=== PATIENT | female | born 1955 | race Caucasian/White ===

== ENCOUNTER 2018-12-05 06:16 | Observation (INO) | payer BC, SELFPAY ==
[2018-12-05] VITALS (14 sets, daily range): BP systolic 120–159; BP diastolic 65–102; PULSE 57–80; RESP 14–20; TEMP 36.6–36.8; O2SAT 96–100; BMI 28.1; BMI 27.1; BMI 27.2
--- NOTE | 2018-12-05 06:30 | RAD_ITS ---
HISTORY: chest pain EXAM:XR Chest 1 View COMPARISON: 12/08/2013 FINDINGS: EKG leads in place. No significant change. Normal heart size. No vascular congestion, pleural effusion, or acute pulmonary infiltration. No pneumothorax. The bony thorax appears intact. RAD/Chest 1 View (Portable) IMPRESSION: No acute cardiopulmonary disease. No significant interval change. at 0740 Reported and signed by: Oneal Sharma MD Electronically Signed: Oneal Sharma, at 7:38 EDT Tel , Service support ,
--- NOTE | 2018-12-05 06:30 | EKG12_ITS ---
Test Reason : CP Blood Pressure : / mmHG Vent. Rate : 074 BPM Atrial Rate : 074 BPM P-R Int : 182 ms QRS Dur : 084 ms QT Int : 402 ms P-R-T Axes : 036 000 014 degrees QTc Int : 446 ms Normal sinus rhythm Nonspecific ST and T wave abnormality Abnormal ECG Confirmed by FARZANEH MCKINNON, GILLIAN ([id number]), restaurant expeditor KATHY GUADARRAMA ([id number]) on 12/08/2018 11:13:26 AM Referred By: BB Confirmed By:GILLIAN MOY MD
[2018-12-05] MEDS: Aspirin 81 MG TAB.CHEW 162 MG PO (06:36)
--- NOTE | 2018-12-05 06:37 | ED.DCSUM_ITS ---
History of Present Illness Chief Complaint: Chest Pain Informant: Patient, Family Onset: Hours - 1 Context: Sudden Onset - while lying in bed, shortly after waking up this AM Timing: Continuous Quality: heaviness, somewhat sharp Location: left chest, radiating down LUE w/ numbness Current Severity: Mild Maximum Severity: Severe Worsened by: nothing in particular. nonpleuritic. Relieved by: gradually after taking a baby aspirin. Associated Symptoms: sob, anxious (after onset), nauseated. Narrative: Patient states yesterday she felt malaised and nauseated off and on without any chest discomfort or dyspnea. This morning she woke up with the symptoms in her left chest, going down her left upper extremity with numbness there, the discomfort has gradually improved and is still present but very mild now. She has never had this before. She took a baby aspirin, although she does not take those daily, prior to arrival. Remote history of a DVT provoked by a foot fracture, she had an anticoagulant for about 6 months until resolution, she feels none of those symptoms now, is no longer on anticoagulation, and never had a pulmonary embolus. No recent travel, immobilization, hospitalization, or surgery. - Past Medical History (1) Anxiety Status: Chronic (2) Diabetes mellitus Status: Chronic (3) Esophageal reflux Status: Chronic (4) Hyperlipidemia Status: Chronic (5) Hypertension Status: Chronic (6) DVT, lower extremity Status: Resolved Past Medical History - Allergies and Home Meds Allergies/Adverse Reactions: Allergies codeine Allergy (Verified 04/24/16 11:52) Unknown venlafaxine HCl [From Effexor] Allergy (Verified 04/24/16 11:52) Chest tightness Primary Care Physician: Aracely Barahona MD [Primary Care Provider] - Surgical History: surgery Lives: Spouse/ Significant Other Smoking Status: Never smoker Drugs: None - Family History Paternal Family History: Reports: Heart Disease - [place] at age 49 Review of Systems General: Reports: Malaise. Denies: Chills, Fever, Sweats Eyes: Denies: Visual changes - bilaterally, Diplopia ENT: Denies: Rhinorrhea, Sore throat Cardiovascular: Reports: Chest pain. Denies: Palpitations Respiratory: Reports: Dyspnea. Denies: Cough Gastrointestinal: Reports: Nausea. Denies: Abdominal pain, Vomiting, Diarrhea, Melena, Hematochezia Genitourinary: Denies: Dysuria, Hematuria, Frequency Musculoskeletal: Denies: Back pain, Extremity Pain Skin: Denies: Rash, Wounds Neurological: Denies: Headache, Weakness, Numbness Psych: Reports: Anxiety. Denies: Suicidal thoughts Physical Exam Vital Signs/Narrative: Vital Signs Temp Pulse Resp BP Pulse Ox 12/05/18 06:32 71 16 147/81 H 98 12/05/18 06:16 97.9 F 80 20 H 159/102 H 100 Inital Vital Signs reviewed: Yes General: Well nourished, Well developed, No Acute Distress Head: Normocephalic, Atraumatic Eyes: Perrl, EOMI ENT: Moist mucous membranes, No rhinorrhea Neck: Supple, Nontender, No JVD Cardiovascular: Regular rate, Regular rhythm, No murmurs Respiratory: No distress, CTA bilaterally, Chest nontender Abdomen: Soft, Nontender, Nondistended, Normal bowel sounds Back: Nontender, Normal Inspection Extremities: Nontender, No edema, - - equal bilat 2+/4 radial pulses. Negative for: Calf Tenderness Skin: Normal color, No rash, No Trauma Neurological: Alert, Oriented x3, Cranial nerves II-XII grossly intact, Normal Strength, Normal Sensation Psychological: - - tearful/anxious Diagnostic/Tx/Re-eval Chest X-Ray - ED: 1 View, Read by ED Physician, No Acute Disease, Chronic Changes Laboratory Tests 12/05/18 12/05/18 12/05/18 Range/Units 06:20 06:20 06:20 WBC 9.6 (4.4-11.0) K/mm3 RBC 3.69 L (4.2-5.4) M/mm3 Hgb 11.5 L (12.0-15.0) g/dl Hct 34.5 L (37-47) % MCV 93.5 (81-99) fL MCH 31.2 (27.0-32.0) pg MCHC 33.3 (32-36) g/gl RDW 13.4 (11.6-14.6) % RDW Differential 46.2 H (35.1-43.9) fl Plt Count 249 (150-450) K/mm3 MPV 10.2 (6.2-12.0) fl Immature Gran % (Auto) 0.200 (0.0-0.9) % Neut % (Auto) 61.0 (47-70) % Lymph % (Auto) 27.5 (19-41) % [place] % (Auto) 9.4 (0-10) % Eos % (Auto) 1.6 (0-5) % Baso % (Auto) 0.3 (0-1) % Absolute Neuts (auto) 5.9 (2.0-7.7) X10^3/uL Absolute Lymphs (auto) 2.63 (0.83-4.51) X10^3/ul Total Counted Not Reportable APTT 27.7 (24.1-36.2) Seconds Sodium 141 (136-145) mmol/L Potassium 3.4 L (3.5-5.1) mmol/L Chloride 104 (98-107) mmol/L Carbon Dioxide 25.0 (21.0-32.0) mmol/L Anion Gap 12 (5-15) BUN 24 H (7-18) mg/dL Creatinine 1.06 H (0.55-1.02) mg/dL Estim Creat Clear Calc 60.27 ml/min Est GFR (MDRD) Af Amer 68 (>60) mL/min Est GFR (MDRD) Non-Af 56 L (>60) mL/min BUN/Creatinine Ratio 22.6 H (10-20) RATIO Glucose 183 H (74-106) mg/dL Calcium 8.6 (8.5-10.1) mg/dL Troponin I < 0.015 (<0.045) ng/mL - Rhythm Strip Rhythm Strip: Sinus Rhythm Rate: 80 Ectopy: None - EKG Initial EKG Interpretation: Sinus Rhythm, No Acute Injury Pattern, Non-Specific ST Changes - ant-sept. no ST depression/elevation. normal axis. Prior: Unchanged - Medical Decision Making KAMILLA risk score: 1 HEART score: 6 Pain and numbness are improved after 3 nitroglycerin, she has barely any discomfort right now. Nitroglycerin paste placed on her chest. She has significant risk, and her symptoms are concerning. Plan is for hospital admission for further treatment and risk stratification. ED Disposition - Plan for ED Patient: Disposition: Acute Care Hospital [facility] Diagnosis: Chest pain Referrals: Aracely Barahona MD [Primary Care Provider] -
[2018-12-05 06:45] LABS: Absolute Lymphocyte Count 2.63 X10^3/ul (0.83-4.51); Absolute Neutrophil Count 5.9 X10^3/uL (2.0-7.7); Basophil# 0.03 X10^3/uL; Basophil% 0.3 % (0-1); Eosinophil# 0.15 X10^3/uL; Eosinophils% 1.6 % (0-5); Hematocrit 34.5 % (37-47); Hemoglobin 11.5 g/dl (12.0-15.0); Lymphocyte # 2.63 X10^3/ul (4.0); Lymphocyte % 27.5 % (19-41); Mean Corp Hgb Conc 33.3 g/gl (32-36); Mean Corpuscular Hgb 31.2 pg (27.0-32.0); Mean Corpuscular Volume 93.5 fL (81-99); Mean Platelet Vol. 10.2 fl (6.2-12.0); Monocyte% 9.4 % (0-10); Neutrophil # 5.85 X10^3/uL (2.7-7.7); Platelet Count 249 K/mm3 (150-450); RBC Distribution Width CV 13.4 % (11.6-14.6); RBC Distribution Width SD 46.2 fl (35.1-43.9); Red Blood Count 3.69 M/mm3 (4.2-5.4); White Blood Count 9.6 K/mm3 (4.4-11.0)
[2018-12-05 06:47] LABS: POSITIVE COUNT NO; POSITIVE DIFFERENTIAL NO; POSITIVE MORPHOLOGY NO; Partial Thromboplast Time 27.7 Seconds (24.1-36.2)
[2018-12-05 06:58] LABS: Anion Gap 12 (5-15); BUN 24 mg/dL (7-18); BUN/Creat Ratio 22.6 RATIO (10-20); Calcium,Total 8.6 mg/dL (8.5-10.1); Chloride 104 mmol/L (98-107); Creatinine, Serum 1.06 mg/dL (0.55-1.02); EST Glomerular Filtration Rate 56 mL/min (>60); Est Glom Filt Rate - Afr Amer 68 mL/min (>60); Estimated Creatinine Clearance 60.27 ml/min; Glucose 183 mg/dL (74-106); Potassium 3.4 mmol/L (3.5-5.1); Sodium Level 141 mmol/L (136-145)
--- NOTE | 2018-12-05 07:24 | HP.PCM_ITS ---
Problem List (1) Chest pain Status: Acute Qualifiers: Chest pain type: unspecified Qualified Code(s): R07.9 - Chest pain, unspecified (2) Hypertension Status: Chronic Qualifiers: Hypertension type: essential hypertension Qualified Code(s): I10 - Essential (primary) hypertension (3) Hyperlipidemia Status: Chronic Qualifiers: Hyperlipidemia type: pure hypercholesterolemia Qualified Code(s): E78.00 - Pure hypercholesterolemia, unspecified; E78.0 - Pure hypercholesterolemia (4) Diabetes mellitus Status: Chronic Qualifiers: Diabetes mellitus type: type 2 Diabetes mellitus intermediate project manager insulin use: without intermediate project manager use Diabetes mellitus complication status: with unspecified complications Qualified Code(s): E11.8 - Type 2 diabetes mellitus with unspecified complications History of Present Illness Date of Admission: 12/05/18 Chief Complaint: Chest pain The patient is a 63 year old F with past medical history of hypertension, hyperlipidemia, type II DM, depression who comes in with complaints of chest pain that started on the morning of admission. Patient denies having unusual stress in her life. 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 She woke up in the morning with a left-sided dull chest pain that radiated on her arms asso ciated with numbness and some lightheadedness. This persisted for more than 15 minutes and she decided to come to the emergency department. In the ED, her vitals were 97.9F, heart rate was 80, blood pressure 159/102, respiratory rate was 20, she was saturating 100% on room air. Admitting blood work showed WBC count of 9.6, hemoglobin 11.5, platelet count 249, sodium 141, potassium 3.4, chloride 104, bicarbonate 25, BUN 24, creatinine 1.06, troponin was less than 0.015. EKG shows normal sinus rhythm, no acute ST-T changes. Past Medical History Past Medical History (Chronic Problems): Chronic Problems Esophageal reflux (Chronic) Anxiety (Chronic) Hypertension (Chronic) Hyperlipidemia (Chronic) Diabetes mellitus (Chronic) Allergies codeine Allergy (Verified 04/24/16 11:52) Unknown venlafaxine HCl [From Effexor] Allergy (Verified 04/24/16 11:52) Chest tightness Home Medications: Ambulatory Orders Medication Instructions Recorded Atenolol [Tenormin (beta elly)] 12.5 mg PO DAILY 09/22/13 Escitalopram Oxalate [Lexapro] 20 mg PO DAILY 09/22/13 Hydrocodone Bitart/Apap 5-325 1 tablet PO BID 09/22/13 [[place] 5/325] Lisinopril [Zestril] 10 mg PO BID 09/22/13 Metformin HCl [Glucophage] 500 mg PO BIDCM 09/22/13 Simvastatin [Zocor] 20 mg PO QHS 09/22/13 Triamterene 37.5MG/Hctz 25MG 1 tablet PO DAILY 09/22/13 [Maxzide 37.5 mg-25 mg Tablet] Zolpidem Tartrate [Ambien] 10 mg PO QHS PRN PRN 09/22/13 Colesevelam Hydrochloride [Welchol] 625 mg PO DAILY 12/05/18 Sitagliptin Phosphate [Januvia] 50 mg PO DAILY 12/05/18 Surgical History: - - foot surgery Psychiatric History: Anxiety, Depression [employer]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 Lives: Spouse/ Significant Other Smoking Status: Never smoker Tobacco Use: Non-smoker Alcohol: None Drugs: None - *Family History Paternal History Items: Heart Disease - [place] at age 49 Maternal History Items: Heart Disease, Hypertension Sibling History Items: Heart Disease Review of Systems Constitutional: Denies: Anorexia, Chills, Fever, Malaise, Weakness, Weight Change Eyes: Denies: Blurred vision, Cataracts, Conjunctivae Inflammation, Pain, Redness, Vision Change HEENT: Denies: Difficulty Hearing, Difficulty Swallowing, Head Aches, Sinus Congestion, Sinus Drainage, Sore Throat Cardiovascular: Reports: Chest Pain, Light Headedness. Denies: Claudication, Chest Pressure, Orthopnea, Palpitations, Paroxysmal Noc. Dyspnea Respiratory: Denies: Cough, Shortness of Breath, Shortness of breath at rest, Shortness of breath upon exertion, Sputum production, Wheezing Gastrointestinal: Denies: Abdominal Pain, Hematemesis, Hematochezia, Nausea, Vomiting Genitourinary: Denies: Dysuria, Frequency Musculoskeletal: Denies: Joint Pain, Joint stiffness, Joint swelling, Joint Tenderness Skin: Denies: Rash, Wounds Neurological: Denies: Numbness, Tingling, Focal weakness Psychiatric: Denies: Anxiety, Depression, Homicidal Ideations, Suicidal Ideations Hematologic/ Lymphatic: Denies: Easy Bruising, Easy Bleeding VTE Information - Inpt Only VTE Present on Admission: No VTE Pharm Prophylaxis ordered?: Yes - Physical Exam General: Alert, Oriented x3, Cooperative, No apparent distress HEENT: Atraumatic, PERRLA, EOMI, Normocephalic Oral: Moist Mucosa Neck: Supple Lungs: Clear to auscultation, Normal air movement Cardiovascular: Regular rate, Regular Rhythm, Normal S1, Normal S2, No murmurs Abdomen: Bowel Sounds Present, Soft, Non Tender, Non-Distended, No Hepato- splenomegaly Extremities: No edema Skin: No rashes, No breakdown Musculoskeletal: No Tenderness to Palpation of Joints or Extremities Lymphatic: No Cervical, Supraclavicular, or Inguinal Adenopathy Neurological: Cranial nerves II-XII grossly intact, Neuro grossly intact Psych/Mental Status: Normal Affect, Appropriate Vital Signs Temp Pulse Resp BP Pulse Ox 97.9 F 76 16 120/76 98 12/05/18 06:16 12/05/18 06:47 12/05/18 06:32 12/05/18 06:47 12/05/18 06:32 Oxygen Delivery Method Room Air Weight: 89 kg Body Mass Index (BMI) 28.1 Laboratory Tests Past 24 Hrs 12/05/18 12/05/18 12/05/18 06:20 06:20 06:20 WBC 9.6 RBC 3.69 L Hgb 11.5 L Hct 34.5 L MCV 93.5 MCH 31.2 MCHC 33.3 RDW 13.4 RDW Differential 46.2 H Plt Count 249 MPV 10.2 Immature Gran % (Auto) 0.200 Neut % (Auto) 61.0 Lymph % (Auto) 27.5 [place] % (Auto) 9.4 Eos % (Auto) 1.6 Baso % (Auto) 0.3 Absolute Neuts (auto) 5.9 Absolute Lymphs (auto) 2.63 Total Counted Not Reportable APTT 27.7 Sodium 141 Potassium 3.4 L Chloride 104 Carbon Dioxide 25.0 Anion Gap 12 BUN 24 H Creatinine 1.06 H Estim Creat Clear Calc 60.27 Est GFR (MDRD) Af Amer 68 Est GFR (MDRD) Non-Af 56 L BUN/Creatinine Ratio 22.6 H Glucose 183 H Calcium 8.6 Troponin I < 0.015 Assessment/Plan All Active Problems DVT, lower extremity (Resolved) Chest pain (Acute) 63 year old F with past medical history of hypertension, hyperlipidemia, type II DM, depression who comes in with complaints of chest pain that started on the morning of admission. 1. Chest pain, atypical, in a patient with risk factors for cardiovascular event of hypertension, hyperlipidemia, type II DM, strong positive family history Plan: Admit to PCU, cycle cardiac enzymes, stress ECHO, aspirin 81 mg po daily 2. Hypertension, slightly uncontrolled, will continue home meds and continue to monitor. 3. Hyperlipidemia, on statin 4. Type 2 DM, on metformin, will withhold metformin, will put on accucheks with ISS 5. DVt PPx- Lovenox SC Code Visit Inpatient E&M: [id number] Init Hosp L3
--- NOTE | 2018-12-05 08:02 | EKG12_ITS ---
Test Reason : CP ADMISSION Blood Pressure : / mmHG Vent. Rate : 057 BPM Atrial Rate : 057 BPM P-R Int : 182 ms QRS Dur : 086 ms QT Int : 426 ms P-R-T Axes : 036 000 022 degrees QTc Int : 414 ms Sinus bradycardia Low voltage QRS Borderline ECG When compared with ECG of 08-DEC-2013 10:07, No significant change was found Confirmed by FARZANEH MCKINNON, GILLIAN ([id number]), manuscript editor KATHY GUADARRAMA ([id number]) on 12/09/2018 8:13:23 AM Referred By: SARITHA Confirmed By:GILLIAN MOY MD
--- NOTE | 2018-12-05 10:35 | PCM.CONS.C ---
Reason for Consult Date of Consultation: 12/05/18 History of Present Illness: The patient is a 63 year old F with no previous cardiac history but a strong family history of coronary artery disease who woke up this morning feeling nauseated and had some chest discomfort described as a heaviness as well as radiation to her left side of her chest. She says that she has been feeling tired over the last few weeks. She has not had any palpitations no paroxysmal nocturnal dyspnea no pedal edema she presented to the hospital she was evaluated her initial EKG was unremarkable and initial troponins were normal. He was scheduled to undergo a stress test but her next enzymes were noted to be abnormal and it was felt that with her symptoms we should defer that. [] Past Medical History Allergies/Adverse Reactions: Allergies codeine Allergy (Verified 04/24/16 11:52) Unknown venlafaxine HCl [From Effexor] Allergy (Verified 04/24/16 11:52) Chest tightness Home Medications: Ambulatory Orders Medication Instructions Recorded Atenolol [Tenormin] 12.5 mg PO DAILY 09/22/13 Escitalopram Oxalate [Lexapro] 20 mg PO DAILY 09/22/13 Hydrocodone Bitart/Apap 5-325 1 tablet PO BID 09/22/13 [[place] 5MG-325MG] Lisinopril [Zestril] 10 mg PO BID 09/22/13 Metformin HCl [Glucophage] 500 mg PO BIDCM 09/22/13 Simvastatin [Zocor] 20 mg PO QHS 09/22/13 Triamterene 37.5MG/Hctz 25MG 1 tablet PO DAILY 09/22/13 [Maxzide 37.5 mg-25 mg Tablet] Zolpidem Tartrate [Ambien] 10 mg PO QHS PRN PRN 09/22/13 Colesevelam Hydrochloride [Welchol] 625 mg PO DAILY 12/05/18 Sitagliptin Phosphate [Januvia] 50 mg PO DAILY 12/05/18 Past Medical History (Chronic Problems): Chronic Problems Esophageal reflux (Chronic) Anxiety (Chronic) Hypertension (Chronic) Hyperlipidemia (Chronic) Diabetes mellitus (Chronic) Surgical History: surgery - *Family History Paternal History Items: Heart Disease - [place] at age 49 Lives: Spouse/ Significant Other Smoking Status: Never smoker Alcohol: None Drugs: None Review of Systems - Review of Systems General: Denies: Fever, Night Sweats, Fatigue HEENT: Denies: Vision Change Cardiovascular: Reports: Chest Discomfort, Chest Discomfort at Rest. Denies: Shortness of Breath, Orthopnea, PND, Peripheral Edema, Palpitations, Lightheadedness, Dizziness, Near Syncope, Syncope Respiratory: Denies: Cough, Sputum Production, Hemoptysis Gastrointestinal: Reports: Nausea. Denies: Hematemesis, Hematochezia, Melena Genitourinary: Denies: Dysuria, Hematuria Muscoloskeletal: Reports: Myalgias Skin: Denies: Rash Psychiatric: Reports: Anxiety Endocrine: Denies: Heat Intolerance Hematologic/ Lymphatic: Denies: Lymph Node Enlargement Subjectve: Pleasant lady in no apparent distress Objective: Vital Signs Temp Pulse Resp BP Pulse Ox 98.0 F 57 L 14 128/66 H 98 12/05/18 08:17 12/05/18 08:34 12/05/18 08:17 12/05/18 08:17 12/05/18 08:17 Oxygen Delivery Method Room Air Weight: 189 lb 9.561 oz Body Mass Index (BMI) 27.1 General: Awake, Alert, Oriented x 3 HEENT: PERRL, EOMI, Sclera Non Icteric Neck: Supple, Good ROM, No Lymph Node Enlargement Lungs: Clear to auscultation Cardiovascular: Regular Rhythm, Normal S1, Normal S2, No Murmurs, No Rubs, No Gallops Vascular: No Carotid Bruits, Normal Femoral Pulses, Normal Radial Pulses, Normal Dorsalis Pedal Pulse, Normal Posterior Tibial Pulses Abdomen: Bowel Sounds Present, Soft, Non Tender, No HSM, No Organomegaly Extremities: No Cyanosis, No Clubbing, No edema Musculoskeletal: No Erythema Skin: No Rashes Lymphatic: No Lymph Node Enlargement Neurological: No Focal Motor or Sensory Deficit Psych/Mental Status: Appropriate 12/05/18 06:20: WBC 9.6, RBC 3.69 L, Hgb 11.5 L, Hct 34.5 L, MCV 93.5, MCH 31.2, MCHC 33.3, RDW 13.4, RDW Differential 46.2 H, Plt Count 249, MPV 10.2, Immature Gran % (Auto) 0.200, Neut % (Auto) 61.0, Lymph % (Auto) 27.5, [place] % (Auto) 9.4, Eos % (Auto) 1.6, Baso % (Auto) 0.3, Absolute Neuts (auto) 5.9, Total Counted Not Reportable 12/05/18 06:20: APTT 27.7 12/05/18 06:20: Sodium 141, Potassium 3.4 L, Chloride 104, Carbon Dioxide 25.0, Anion Gap 12, BUN 24 H, Creatinine 1.06 H, Est GFR (MDRD) Af Amer 68, Est GFR (MDRD) Non-Af 56 L, BUN/Creatinine Ratio 22.6 H, Glucose 183 H, Calcium 8.6, Troponin I < 0.015 12/05/18 09:15: Troponin I 0.281 H Rhythm: EKG: ECHO: Stress Test: Cardiac Cath: PCI: CT Surgery: Holter monitor: EPS: PPM: CXR: Chest CT Scan: Assessment/Plan 1. Unstable angina Patient presents with chest discomfort and has abnormal cardiac enzymes. Her chest discomfort though atypical appears to be suggestive of unstable angina. My recommendations at this time would be as follows Loaded with ticagrelor aspirin Defer stress testing and proceed with a left heart catheterization. The risk benefits alternatives have been explained to the patient and her they understand and agreed to proceed. 2. Hypertension Controlled with current medical therapy 3. Risk factor modification Continue aggressive risk factor modification Addendum.: Cardiac catheterization today demonstrated minimal coronary artery disease and preserved ejection fraction. The patient will be discharged for outpatient follow-up. Thank you for allowing me to participate in the care of your patient. Please don't hesitate to call if any issues arise
--- NOTE | 2018-12-05 10:40 | CON.PCM_ITS ---
Reason for Consult Date of Consultation: 12/05/18 History of Present Illness: The patient is a 63 year old F with no previous cardiac history but a strong family history of coronary artery disease who woke up this morning feeling nauseated and had some chest discomfort described as a heaviness as well as radi ation to her left side of her chest. She says that she has been feeling tired over the last few weeks. She has not had any palpitations no paroxysmal nocturnal dyspnea no pedal edema she presented to the hospital she was evaluated her initial EKG was unremarkable and initial troponins were normal. He was scheduled to undergo a stress test but her next enzymes were noted to be abnormal and it was felt that with her symptoms we should defer that. [] Past Medical History Allergies/Adverse Reactions: Allergies codeine Allergy (Verified 04/24/16 11:52) Unknown venlafaxine HCl [From Effexor] Allergy (Verified 04/24/16 11:52) Chest tightness Home Medications: Ambulatory Orders Medication Instructions Recorded Atenolol [Tenormin] 12.5 mg PO DAILY 09/22/13 Escitalopram Oxalate [Lexapro] 20 mg PO DAILY 09/22/13 Hydrocodone Bitart/Apap 5-325 1 tablet PO BID 09/22/13 [[place] 5MG-325MG] Lisinopril [Zestril] 10 mg PO BID 09/22/13 Metformin HCl [Glucophage] 500 mg PO BIDCM 09/22/13 Simvastatin [Zocor] 20 mg PO QHS 09/22/13 Triamterene 37.5MG/Hctz 25MG 1 tablet PO DAILY 09/22/13 [Maxzide 37.5 mg-25 mg Tablet] Zolpidem Tartrate [Ambien] 10 mg PO QHS PRN PRN 09/22/13 Colesevelam Hydrochloride [Welchol] 625 mg PO DAILY 12/05/18 Sitagliptin Phosphate [Januvia] 50 mg PO DAILY 12/05/18 Past Medical History (Chronic Problems): Chronic Problems Esophageal reflux (Chronic) Anxiety (Chronic) Hypertension (Chronic) Hyperlipidemia (Chronic) Diabetes mellitus (Chronic) Surgical History: surgery - *Family History Paternal History Items: Heart Disease - MD at age 49 Lives: Spouse/ Significant Other Smoking Status: Never smoker Alcohol: None Drugs: None Review of Systems - Review of Systems General: Denies: Fever, Night Sweats, Fatigue HEENT: Denies: Vision Change Cardiovascular: Reports: Chest Discomfort, Chest Discomfort at Rest. Denies: Shortness of Breath, Orthopnea, PND, Peripheral Edema, Palpitations, Lightheadedness, Dizziness, Near Syncope, Syncope Respiratory: Denies: Cough, Sputum Production, Hemoptysis Gastrointestinal: Reports: Nausea. Denies: Hematemesis, Hematochezia, Melena Genitourinary: Denies: Dysuria, Hematuria Muscoloskeletal: Reports: Myalgias Skin: Denies: Rash Psychiatric: Reports: Anxiety Endocrine: Denies: Heat Intolerance Hematologic/ Lymphatic: Denies: Lymph Node Enlargement Subjectve: Pleasant lady in no apparent distress Objective: Vital Signs Temp Pulse Resp BP Pulse Ox 98.0 F 57 L 14 128/66 H 98 12/05/18 08:17 12/05/18 08:34 12/05/18 08:17 12/05/18 08:17 12/05/18 08:17 Oxygen Delivery Method Room Air Weight: 189 lb 9.561 oz Body Mass Index (BMI) 27.1 General: Awake, Alert, Oriented x 3 HEENT: PERRL, EOMI, Sclera Non Icteric Neck: Supple, Good ROM, No Lymph Node Enlargement Lungs: Clear to auscultation Cardiovascular: Regular Rhythm, Normal S1, Normal S2, No Murmurs, No Rubs, No Gallops Vascular: No Carotid Bruits, Normal Femoral Pulses, Normal Radial Pulses, Normal Dorsalis Pedal Pulse, Normal Posterior Tibial Pulses Abdomen: Bowel Sounds Present, Soft, Non Tender, No HSM, No Organomegaly Extremities: No Cyanosis, No Clubbing, No edema Musculoskeletal: No Erythema Skin: No Rashes Lymphatic: No Lymph Node Enlargement Neurological: No Focal Motor or Sensory Deficit Psych/Mental Status: Appropriate 12/05/18 06:20: WBC 9.6, RBC 3.69 L, Hgb 11.5 L, Hct 34.5 L, MCV 93.5, MCH 31.2, MCHC 33.3, RDW 13.4, RDW Differential 46.2 H, Plt Count 249, MPV 10.2, Immature Gran % (Auto) 0.200, Neut % (Auto) 61.0, Lymph % (Auto) 27.5, [place] % (Auto) 9.4, Eos % (Auto) 1.6, Baso % (Auto) 0.3, Absolute Neuts (auto) 5.9, Total Counted Not Reportable 12/05/18 06:20: APTT 27.7 12/05/18 06:20: Sodium 141, Potassium 3.4 L, Chloride 104, Carbon Dioxide 25.0, Anion Gap 12, BUN 24 H, Creatinine 1.06 H, Est GFR (MDRD) Af Amer 68, Est GFR (MDRD) Non-Af 56 L, BUN/Creatinine Ratio 22.6 H, Glucose 183 H, Calcium 8.6, Troponin I < 0.015 12/05/18 09:15: Troponin I 0.281 H Rhythm: EKG: ECHO: Stress Test: Cardiac Cath: PCI: CT Surgery: Holter monitor: EPS: PPM: CXR: Chest CT Scan: Assessment/Plan 1. Unstable angina * Patient presents with chest discomfort and has abnormal cardiac enzymes. Her chest discomfort though atypical appears to be suggestive of unstable angina. My recommendations at this time would be as follows * Loaded with ticagrelor * aspirin * Defer stress testing and proceed with a left heart catheterization. The risk benefits alternatives have been explained to the patient and her they understand and agreed to proceed. * 2. Hypertension * Controlled with current medical therapy * 3. Risk factor modification * Continue aggressive risk factor modification * * * Addendum.: Cardiac catheterization today demonstrated minimal coronary artery disease and preserved ejection fraction. The patient will be discharged for outpatient follow-up. * Thank you for allowing me to participate in the care of your patient. Please don't hesitate to call if any issues arise
--- NOTE | 2018-12-05 10:42 | CASEMGMT ---
According to [facility] website, the following are in-network tertiary facilities: [facility], [facility], [facility], [facility], [facility], [facility], [facility], [facility], and . Maranda DENTON CM
--- NOTE | 2018-12-05 10:47 | NURSING ---
report called to Siddhartha DENTON
[2018-12-05] MEDS: Triamterene 37.5MG/Hctz 25MG Capsule 1 CAP PO (12:30)
[2018-12-05] MEDS: Lisinopril 20 MG Tablet PO (12:30)
[2018-12-05] MEDS: Atenolol 25 MG Tablet 12.5 MG PO (12:30)
[2018-12-05] MEDS: Escitalopram Oxalate 20 MG Tablet PO (12:30)
[2018-12-05 12:35] LABS: Bedside Glucose 120 mg/dL (70-110)
--- NOTE | 2018-12-05 12:57 | DCINST_ITS ---
- Discharge Diagnoses Current Active Problems: Current Active and Chronic Problems Chest pain (Acute) Reason(s) for Visit for Discharge Instructions: Chest pain You will use the following diet at home:: Calorie/Carbohydrate Controlled (specify 1200, 1400, etc), Cardiac Your food should be the consistency of: Regular Your liquids should be the consistency of: Regular/Thin Discharge Activity: Return to Normal Activity Additional Instructions: Continue on all your medications. Follow-up with your primary care doctor within 1-2 weeks. Resume metformin on 12/07/18. Continue to remain active Allergies/Adverse Reactions: Allergies codeine Allergy (Verified 04/24/16 11:52) Unknown venlafaxine HCl [From Effexor] Allergy (Verified 04/24/16 11:52) Chest tightness Medications to take at Discharge Atenolol [Tenormin (beta elly)] 12.5 mg PO DAILY 09/22/13 Escitalopram Oxalate [Lexapro] 20 mg PO DAILY 09/22/13 Hydrocodone Bitart/Apap 5-325 [[place] 5/325] 1 tablet PO BID 09/22/13 Lisinopril [Zestril] 10 mg PO BID 09/22/13 Metformin HCl [Glucophage] 500 mg PO BIDCM 09/22/13 Simvastatin [Zocor] 20 mg PO QHS 09/22/13 Triamterene 37.5MG/Hctz 25MG [Maxzide 37.5 mg-25 mg Tablet] 1 tablet PO DAILY 09/22/13 Zolpidem Tartrate [Ambien] 10 mg PO QHS PRN PRN 09/22/13 Colesevelam Hydrochloride [Welchol] 625 mg PO DAILY 12/05/18 Sitagliptin Phosphate [Januvia] 50 mg PO DAILY 12/05/18 Primary Care Physician: Aracely Barahona MD [Primary Care Provider] - Please follow up with your Primary Care Physician in: within 1-2 weeks Test Results: Test results from this visit will be discussed in further detail at your follow- up appointment, if applicable. Proposed Discharge Date: 12/05/18
--- NOTE | 2018-12-05 12:57 | PCM.DC.SUM ---
Discharge Date and Diagnosis Date of Admission: 01/18/11 Date of Discharge: 12/05/18 - Primary Discharge Diagnosis Active and Suspected Problems Chest pain (Acute) - Secondary Discharge Diagnosis Chronic Problems Esophageal reflux (Chronic) Anxiety (Chronic) Hypertension (Chronic) Hyperlipidemia (Chronic) Diabetes mellitus (Chronic) Hospital Course and Treatment Imaging Results: 12/05/18 06:30 Chest 1 View (Portable) [RAD] Stat Clinical Impression(s) from Imaging Studies Chest X-Ray 12/05/18 06:30 IMPRESSION: No acute cardiopulmonary disease. No significant interval change. at 0740 Reported and signed by: Oneal Sharma MD Electronically Signed: Oneal Sharma, at 7:38 EDT Tel , Service support , Cardiology Operations: None Procedures: Cardiac catheterization, Stress test Summary of Care Provided: The patient is a 63 year old F with past medical history of hypertension, hyperlipidemia, type II DM, with a strong family history of cardiovascular events who was admitted with an episode of chest pain concerning for possible angina. Patient admits EKG was unremarkable, troponins initially was negative, and elevated to 0.281. Patient was seen by cardiology. She underwent cardiac cath that was essentially normal. Patient was discharged home to follow-up with her primary care doctor. Subjective: See H & P Objective: See H & P - Physical Exam Vital Signs Temp Pulse Resp BP Pulse Ox 98.0 F 62 16 131/71 H 96 12/05/18 08:17 12/05/18 12:30 12/05/18 12:30 12/05/18 12:30 12/05/18 12:30 Oxygen Delivery Method Room Air Weight: 86 kg Body Mass Index (BMI) 27.1 Intake and Output for Last 24 Hours 12/03/18 12/04/18 12/05/18 23:59 23:59 23:59 Intake Total 340 / 340 Balance 340 / 340 Laboratory Tests Past 24 Hrs 12/05/18 12/05/18 12/05/18 06:20 06:20 06:20 WBC 9.6 RBC 3.69 L Hgb 11.5 L Hct 34.5 L MCV 93.5 MCH 31.2 MCHC 33.3 RDW 13.4 RDW Differential 46.2 H Plt Count 249 MPV 10.2 Immature Gran % (Auto) 0.200 Neut % (Auto) 61.0 Lymph % (Auto) 27.5 [place] % (Auto) 9.4 Eos % (Auto) 1.6 Baso % (Auto) 0.3 Absolute Neuts (auto) 5.9 Absolute Lymphs (auto) 2.63 Total Counted Not Reportable APTT 27.7 Sodium 141 Potassium 3.4 L Chloride 104 Carbon Dioxide 25.0 Anion Gap 12 BUN 24 H Creatinine 1.06 H Estim Creat Clear Calc 60.27 Est GFR (MDRD) Af Amer 68 Est GFR (MDRD) Non-Af 56 L BUN/Creatinine Ratio 22.6 H Glucose 183 H Calcium 8.6 Troponin I < 0.015 12/05/18 09:15 WBC RBC Hgb Hct MCV MCH MCHC RDW RDW Differential Plt Count MPV Immature Gran % (Auto) Neut % (Auto) Lymph % (Auto) [place] % (Auto) Eos % (Auto) Baso % (Auto) Absolute Neuts (auto) Absolute Lymphs (auto) Total Counted APTT Sodium Potassium Chloride Carbon Dioxide Anion Gap BUN Creatinine Estim Creat Clear Calc Est GFR (MDRD) Af Amer Est GFR (MDRD) Non-Af BUN/Creatinine Ratio Glucose Calcium Troponin I 0.281 H POC Glucose 12/05/18 12:28 POC Glucose 120 H Discharge Diet: Soft diet, 2000 mg Sodium Diet, Carb Control Diet Discharge Activity: Return to Normal Activity Home Medications: Medications to take at Discharge Atenolol [Tenormin (beta elly)] 12.5 mg PO DAILY 09/22/13 Escitalopram Oxalate [Lexapro] 20 mg PO DAILY 09/22/13 Hydrocodone Bitart/Apap 5-325 [[place] 5/325] 1 tablet PO BID 09/22/13 Lisinopril [Zestril] 10 mg PO BID 09/22/13 Metformin HCl [Glucophage] 500 mg PO BIDCM 09/22/13 Simvastatin [Zocor] 20 mg PO QHS 09/22/13 Triamterene 37.5MG/Hctz 25MG [Maxzide 37.5 mg-25 mg Tablet] 1 tablet PO DAILY 09/22/13 Zolpidem Tartrate [Ambien] 10 mg PO QHS PRN PRN 09/22/13 Colesevelam Hydrochloride [Welchol] 625 mg PO DAILY 12/05/18 Sitagliptin Phosphate [Januvia] 50 mg PO DAILY 12/05/18 Primary Care Physician: Aracely Barahona MD [Primary Care Provider] - Please follow up with your Primary Care Physician in: within 1-2 weeks Disposition: Home Minutes spent on discharge:: 45 Patient Condition:: Stable Medical Necessity - Tobacco Use Smoking Status: Never smoker Tobacco Use: Non-smoker Meaningful Use Info Meaningful Use Diagnoses (Choose all that apply): None applicable Code Visit OBSV E&M: 40367 Observation care discharge
[2018-12-05] MEDS: HYDROcodone Bitartrate/Apap 5/325 Tablet PO (13:41)
--- NOTE | 2018-12-05 14:47 | CL.D_ITS ---
Patient Name: TY HOLLINGSWORTH Study Date: 12/05/2018 Performing: Demetrius Renee MD Ht: 70 inches 178 cm : 1955 Wt: 189.8 lbs 86 kg Age: 63 Gender: female BSA: 2.04 PROCEDURE(S) PERFORMED KC68-YMK/COR/LV CLINICAL PROFILE AND INDICATIONS Indications: Suspected CAD Heart Failure: None Stress/Imaging Stress/Image Study Performed: No CAD Presentations: Unstable angina. CONCLUSIONS Normal coronary arteries Normal LV size, wall motion,and systolic function RECOMMENDATIONS Medical therapy DESCRIPTION OF PROCEDURE The patient arrived to the procedure lab. The risks and benefits of the procedure as well as a full d escription of our services here and current unavailability of surgical backup were fully explained to the patient and/or their significant other prior to the catheterization. The Timeout was completed, verifying the correct patient and procedure. The patient's procedural site was prepped and draped in the usual fashion. Local anesthetic was given subcutaneously to right radial region with Lidocaine 2% . Using a modified Seldinger technique, arterial access was obtained via the right radial artery, a 5 Fr sheath was inserted. Left Coronary Artery selective angiography was performed in multiple views u sing a 5 Fr. 4.0 [place] catheter. Right Coronary Artery selective angiography was then performed in mu ltiple views using a 5 Fr. 4.0 [place] catheter. Left Ventriculography was performed in FIERRO projection using a 5 Fr. Pigtail catheter. LV to AO pullback pressures were then recorded.The arterial sheath was pulled and a TR Band was applied for hemostasis-14 cc air CORONARY ANGIOGRAPHY DOMINANCE: Right Dominant LEFT HEART ASSESSMENT Left Ventricular Ejection Fraction: by LV Gram 55 % Normal LV wall motion Normal Left Ventricular systolic function Normal Left Ventricular systolic function LEFT MAIN: Angiographically normal LEFT ANTERIOR DECENDING ARTERY: Angiographically normal CIRCUMFLEX ARTERY: Angiographically normal RIGHT CORONARY ARTERY: Angiographically normal COMPLICATIONS No Complications PROCEDURE MEDICATIONS Versed 1 mg IV Fentanyl 50 mcg IV Versed 1 mg IV Oxygen: 2 L/min via nasal cannula Brilinta 180 mg PO @ 12/05/2018 10:42:58 Heparin diluted in 23cc Heparinized saline. Patient given 10cc IA of this solution. 12/05/2018 11:28:3 8 Verapamil 2.5mg, Ntg 100mcgs, 2000 units of Heparin diluted in 23cc Heparinized saline. Patient give n 10cc IA of this solution. 12/05/2018 11:28:38 SUMMARY OF HEMODYNAMIC DATA Time AIR REST ECG 11:16:16 AO 133/68 (94) SA 11:40:50 LV 134/-1, 11 11:49:34 LV 121/-2, 5 11:49:41 LV 124/-1, 10 11:50:38 LVp 135/4, 14 11:50:47 AOp 145/68 (98) 11:50:52 Signed By Demetrius Renee MD On 12/05/2018 14:46:06 Demetrius Renee MD
== END 2018-12-05 12:45 | disposition home or self-care (01) ==
LOC: ED 07:01 → PCU 07:32
PROVIDERS: Admitting Provider Internal Medicine; Emergency Provider Emergency Medicine; Family Provider Internal Medicine; PCP Internal Medicine; Visit Provider Internal Medicine
DX: R07.89 Other chest pain (principal); R20.0 Anesthesia of skin; R11.0 Nausea; K21.9 Gastro-esophageal reflux disease without esophagitis; E78.5 Hyperlipidemia, unspecified; E11.9 Type 2 diabetes mellitus without complications; I10 Essential (primary) hypertension; F41.9 Anxiety disorder, unspecified; Z79.84 Long term (current) use of oral hypoglycemic drugs; Z79.899 Other long term (current) drug therapy; Z86.718 Personal history of other venous thrombosis and embolism; F32.9 Major depressive disorder, single episode, unspecified; R42 Dizziness and giddiness
CPT/HCPCS: 36415; 71045; 80048; 82962; 84484; 85025; 85730; 93005; 93458; 99152; 99153; 99218; 99285; J7040; A4216; C1769; C1894; G0378; Q9967

== ENCOUNTER 2019-10-14 17:13 | Emergency (ER) | payer BC, SELFPAY ==
[2018-12-05 08:06] VITALS: BMI 27.1
[2019-10-14 17:14] VITALS: RESP 16
[2019-10-14 17:15] VITALS: BP 140/84; PULSE 101; RESP 17; TEMP 37.4; O2SAT 97; BMI 25.2
--- NOTE | 2019-10-14 17:38 | EKG12_ITS ---
Test Reason : CP Blood Pressure : / mmHG Vent. Rate : 090 BPM Atrial Rate : 090 BPM P-R Int : 162 ms QRS Dur : 078 ms QT Int : 360 ms P-R-T Axes : 025 -02 010 degrees QTc Int : 440 ms Normal sinus rhythm Low voltage QRS Nonspecific ST and T wave abnormality Abnormal ECG Confirmed by COLIN MCKINNON, AMRIK ([id number]), index editor TRAM KRISHNAN ([id number]) on 10/16/2019 8:02:28 AM Referred By: JUAN MANUEL Confirmed By:NIKKI SHAW MD
[2019-10-14] MEDS: 0.9% Normal Saline 1,000 ML 1000 ML IV (17:49)
[2019-10-14] MEDS: Aspirin 81 MG TAB.CHEW 324 MG PO (17:50)
[2019-10-14] MEDS: Ondansetron 4 MG/2 ML Vial IV (17:50)
[2019-10-14] MEDS: Morphine 4 MG/ML Syringe IV (17:50)
[2019-10-14 17:52] LABS: Bacteria 0 SEEN /hpf (None Seen); Mucous, Urine 0 SEEN /hpf (<or=2+); Red Blood Cells-Urine 0 SEEN /hpf (0-5); Squamous Epithelial Cells - UA 0 SEEN /hpf (5-10); White Blood Cells 0 SEEN /hpf (0-5)
[2019-10-14 17:58] LABS: Absolute Lymphocyte Count 0.22 X10^3/uL (0.83-4.51); Absolute Neutrophil Count 10.2 X10^3/uL (2.0-7.7); Basophil# 0.01 X10^3/uL; Basophil% 0.1 % (0-1); Hematocrit 37.4 % (37-47); Hemoglobin 12.7 g/dL (12.0-15.0); Lymphocyte # 0.22 X10^3/ul (4.0); Mean Corpuscular Hgb 30.4 pg (27.0-32.0); Mean Corpuscular Volume 89.5 fL (81-99); Monocyte# 0.41 X10^3/uL; Monocyte% 3.8 % (0-10); NRBC Flagged by Analyzer 0 % (0-5); Neutrophil # 10.18 X10^3/uL (2.7-7.7); Neutrophil % 93.5 % (47-70); POSITIVE DIFFERENTIAL YES; Platelet Count 220 K/mm3 (150-450); RBC Distribution Width CV 12.8 % (11.6-14.6); RBC Distribution Width SD 41.3 fl (35.1-43.9); Red Blood Count 4.18 M/mm3 (4.2-5.4); White Blood Count 10.9 K/mm3 (4.4-11.0)
[2019-10-14 18:00] LABS: Differential Indicated SCAN CRITERIA MET
--- NOTE | 2019-10-14 18:00 | RAD_ITS ---
STUDY: X-RAY CHEST REASON FOR EXAM: Female, 64 years old. Pain TECHNIQUE: Frontal and lateral views of the chest COMPARISON: 12/05/2018 FINDINGS: The lungs are clear. There are no pleural effusions. There is no pneumothorax. The heart is normal in size. The visualized osseous structures are within normal limits. RAD/Chest PA and Lateral IMPRESSION: No acute thoracic pathology. Electronically Signed: Yifan Madera, at 18:29 EST Tel , Service support ,
[2019-10-14 18:03] LABS: Color, Urine Yellow (Yellow); Glucose, Dipstick Normal (Normal); Ketone-Dipstick 50 mg/dl (Negative); Leukocyte Esterase-Dipstick Negative /ul (Negative); Nitrite-Dipstick Negative (Negative); Occult Blood-Urine Negative /ul (Negative); Protein-Dipstick 15 mg/dl (Negative); Urine Bilirubin Dipstick Negative (Negative); Urine Clarity Sl. Cloudy (Clear); Urine Urobilinogen Normal (Normal)
[2019-10-14 18:15] LABS: ALB/GLOB Ratio 1.2 RATIO (0.9-2.4); AST(SGOT) 14 U/L (15-37); Alanine Aminotransfer ALT/SGPT 26 U/L (13-56); Alkaline Phosphatase 67 U/L (45-117); Anion Gap 10 (5-15); BUN 28 mg/dL (7-18); BUN/Creat Ratio 26.2 RATIO (10-20); Calcium,Total 9.1 mg/dL (8.5-10.1); Chloride 104 mmol/L (98-107); Creatinine, Serum 1.07 mg/dL (0.55-1.02); EST Glomerular Filtration Rate 55 mL/min (>60); Est Glom Filt Rate - Afr Amer 67 mL/min (>60); Estimated Creatinine Clearance 58.95 ml/min; Globulin 3.4 g/dL (2.2-4.2); Glucose 149 mg/dL (74-106); Lipase 86 U/L (73-393); Potassium 3.1 mmol/L (3.5-5.1); Protein, Total 7.4 g/dL (6.4-8.2); Sodium Level 138 mmol/L (136-145)
[2019-10-14 18:27] LABS: Differential Comment SCANNED
[2019-10-14 19:14] VITALS: BP 128/69; PULSE 88; RESP 20; O2SAT 94
--- NOTE | 2019-10-14 20:12 | ED.VISSUMM ---
- ER Visit Summary Date of Service: 10/14/19 Chief Complaint: Abdominal pain History of Present Illness: The patient is a 64 F who presents with abdominal pain that has been constant for the past week. Patient states her pain is over the epigastric area. Patient admits to some pain up into her chest. Patient describes her pain is sharp. Patient admits to some nausea and vomiting. Patient denies any hematemesis or coffee-ground emesis. Patient denies any diarrhea, melena, or hematochezia. Patient denies any dysuria or hematuria. Patient denies any shortness of breath. Patient admits to subjective chills but denies any fevers. Physical Examination: Vital signs are stable. Patient is afebrile. Patient is in no acute distress. Oral mucosa is pink and moist. Neck is supple. Trachea is midline. There is no JVD. Heart was regular rate and rhythm. Lungs are clear and equal bilaterally. Abdomen is soft. Bowel sounds are normal. There is some epigastric tenderness. There is no rebound or guarding noted. Cranial nerves II through XII are intact. There are no focal motor or sensory deficits noted. Test Results: EKG showed normal sinus rhythm with a rate of 90. There are nonspecific ST-T wave changes. These were unchanged compared to the previous EKG dated 12/05/2018. CBC and comprehensive metabolic profile were essentially within normal limits. Potassium was slightly low at 3.1. Urinalysis was normal. Troponin was normal. PA and lateral chest x-ray was obtained. There is no acute cardiopulmonary process. This was interpreted by the radiologist and myself. Emergency Department Course and Treatment: Patient was given aspirin. Patient was given morphine and Zofran. Patient was feeling better on reevaluation. Patient was hungry and requested something to drink. Patient was advised of her findings. Patient was instructed to follow-up with her primary care physician in 3 to 5 days. Patient understood and was agreeable with the plan. All questions were answered. Disposition: Discharge home Impression: Abdominal pain This note was generated with [employer] dictation software. It may contain incorrect words, spelling, and punctuation that were not noted in review of the chart prior to signing ED Disposition - Plan for ED Patient: Disposition: Home or Assisted Living Diagnosis: Abdominal pain, Chest pain Instructions: ABDOMINAL PAIN, Unknown Cause, (Female), CHEST PAIN, Uncertain Cause Prescriptions: Ondansetron [Zofran Odt] 4 mg PO Q8H PRN PRN #10 tab PRN Reason: Nausea Prescription Printed Referrals: Aracely Barahona MD [Primary Care Provider] - 5-7 Days
[2019-10-14 20:25] VITALS: BP 114/71; PULSE 93; RESP 18; O2SAT 95
== END 2019-10-14 20:28 | disposition home or self-care (01) ==
PROVIDERS: Emergency Provider Emergency Medicine; PCP Internal Medicine
DX: R10.13 Epigastric pain (principal); R07.9 Chest pain, unspecified; E11.9 Type 2 diabetes mellitus without complications; Z79.899 Other long term (current) drug therapy; M54.5 Low back pain; Z79.84 Long term (current) use of oral hypoglycemic drugs
CPT/HCPCS: 71046; 80053; 81001; 83690; 84484; 85025; 93005; 96361; 96374; 96375; 99285; J7030; A4216; J2405

== ENCOUNTER 2020-03-07 18:40 | Emergency (ER) | payer BC, SELFPAY ==
[2020-03-07 18:41] VITALS: BP 147/94; PULSE 68; RESP 15; TEMP 36.4; O2SAT 96; BMI 25.9
--- NOTE | 2020-03-07 19:01 | EKG12_ITS ---
Test Reason : CHEST PAIN Blood Pressure : / mmHG Vent. Rate : 069 BPM Atrial Rate : 069 BPM P-R Int : 176 ms QRS Dur : 086 ms QT Int : 388 ms P-R-T Axes : 024 002 030 degrees QTc Int : 415 ms Normal sinus rhythm Normal ECG Confirmed by DIAMOND MCKINNON, MILADY ([id number]), science editor TRAM KRISHNAN ([id number]) on 03/09/2020 10:15:16 AM Referred By: REGINE Confirmed By:MILADY FIELDS MD
--- NOTE | 2020-03-07 19:01 | RAD_ITS ---
STUDY: X-RAY CHEST REASON FOR EXAM: Female, 64 years old. Chest pain TECHNIQUE: Frontal view of the chest COMPARISON: 10/14/2019 FINDINGS: The lungs are clear. There are no pleural effusions. There is no pneumothorax. The heart is normal in size. The visualized osseous structures are within normal limits. RAD/Chest 1 View (Portable) IMPRESSION: No acute thoracic pathology. Electronically Signed: Yifan Madera, at 19:44 EDT Tel , Service support ,
[2020-03-07] MEDS: Aspirin 81 MG TAB.CHEW 324 MG PO (19:32)
--- NOTE | 2020-03-07 19:34 | ED.RN ---
pt requested to not take nitro at this time as she states my chest pain is getting better can we wait on the nitro. md made aware. will continue to monitor the pt.
[2020-03-07 19:54] LABS: Absolute Lymphocyte Count 2.44 X10^3/uL (0.83-4.51); Absolute Neutrophil Count 5.9 X10^3/uL (2.0-7.7); Basophil# 0.03 X10^3/uL; Basophil% 0.3 % (0-1); Eosinophil# 0.07 X10^3/uL; Eosinophils% 0.8 % (0-5); Hematocrit 37.1 % (37-47); Hemoglobin 12.1 g/dL (12.0-15.0); Lymphocyte # 2.44 X10^3/ul (4.0); Lymphocyte % 26.3 % (19-41); Mean Corp Hgb Conc 32.6 g/dL (32-36); Mean Corpuscular Hgb 30.8 pg (27.0-32.0); Mean Corpuscular Volume 94.4 fL (81-99); Mean Platelet Vol. 11.1 fl (6.2-12.0); Monocyte# 0.77 X10^3/uL; Monocyte% 8.3 % (0-10); NRBC Flagged by Analyzer 0 % (0-5); Neutrophil # 5.94 X10^3/uL (2.7-7.7); Platelet Count 266 K/mm3 (150-450); RBC Distribution Width CV 13.7 % (11.6-14.6); RBC Distribution Width SD 47.3 fl (35.1-43.9); Red Blood Count 3.93 M/mm3 (4.2-5.4); White Blood Count 9.3 K/mm3 (4.4-11.0)
[2020-03-07 19:55] LABS: Anion Gap 7 (5-15); BUN 24 mg/dL (7-18); BUN/Creat Ratio 23.5 RATIO (10-20); Chloride 105 mmol/L (98-107); Creatinine, Serum 1.02 mg/dL (0.55-1.02); EST Glomerular Filtration Rate 58 mL/min (>60); Est Glom Filt Rate - Afr Amer 70 mL/min (>60); Estimated Creatinine Clearance 61.84 ml/min; Glucose 139 mg/dL (74-106); Potassium 3.6 mmol/L (3.5-5.1); Sodium Level 139 mmol/L (136-145)
[2020-03-07 20:11] LABS: D-Dimer Quantitative (DVT/PE) 0.94 FEU/ug/m (0.27-0.49)
--- NOTE | 2020-03-07 20:21 | CT_ITS ---
STUDY: CTA CHEST REASON FOR EXAM: Female, 64 years old. MID STERNAL PAIN RADIATING INTO BACK TODAY. Elev ddimer of .94 RADIATION DOSAGE (If Supplied By Facility): CTDIvol = ( 10.47 ) mGy, DLP = ( 445.54 ) mGycm TECHNIQUE: The examination was performed with the intravenous administration of IV 75mL Isovue-370. Post-processing of the angiographic images was performed, with multiplanar reformation and 3D reconstruction. Individualized dose optimization techniques were used for this CT. COMPARISON: None. FINDINGS: Normal enhancement of the main pulmonary artery and right and left pulmonary arteries. Normal enhancement of the bilateral peripheral pulmonary arteries. There is no demonstrated pulmonary embolism. Normal thoracic aorta and visualized great vessels. There is no demonstrated aortic dissection. Normal heart and pericardium. Normal mediastinum. Normal hilar regions. Normal visualized trachea and bronchi. The lungs are well expanded. Normal pulmonary parenchyma. Normal pleura. Normal chest wall structures. Normal osseous structures. Normal visualized upper abdomen. CT/CTA Chest W/WO Contrast IMPRESSION: Normal CTA chest examination, without a demonstrated pulmonary embolism or arterial dissection. Electronically Signed: Yifan Madera, at 21:12 EDT Tel , Service support ,
--- NOTE | 2020-03-07 20:22 | ED.RN ---
aware of d- dimer
[2020-03-07 20:41] VITALS: BP 136/76; PULSE 66; RESP 16; O2SAT 97
[2020-03-07 21:41] VITALS: BP 166/78; PULSE 67; RESP 14; O2SAT 95
[2020-03-07 22:00] VITALS: BP 166/78; PULSE 73; RESP 15; O2SAT 96
--- NOTE | 2020-03-07 22:54 | ED.DCSUM_ITS ---
- ER Visit Summary Date of Service: 03/07/20 Chief Complaint: Chest pain History of Present Illness: The patient is a 64 F who presents with chest pain that began approximate 1 hour prior to arrival. Patient states is been constant. Patient states it is a burning and heavy pain. Patient states it is over the substernal area. Patient states nothing makes it better or worse. Patient admits to some acid reflux. Patient denies any nausea or vomiting. Patient denies any shortness of breath or diaphoresis. Patient denies any cough or fever. Patient denies any palpitations. Patient has a history of diabetes and hypertension. Patient also has a family history of coronary artery disease in her parents and sibling. Physical Examination: Vital signs are stable. Patient is afebrile. Patient is in no acute distress. Oral mucosa is pink and moist. Neck is supple. Trachea is midline. There is no JVD noted. Heart was regular rate and rhythm. Lungs are clear and equal bilaterally. Abdomen is soft. Bowel sounds are normal. There is no tenderness. There is no rebound or guarding noted. Skin is warm dry. Cranial nerves II through XII are intact. There are no focal motor or sensory deficits noted. Extremities are intact. There is no calf tenderness or edema. Test Results: EKG showed normal sinus rhythm with a rate of 69. There are no acute ST or T wave changes. This was unchanged compared to previous EKG dated 10/14/2019. CBC and basic metabolic profile within normal limits. Troponin was normal. D-dimer was slightly elevated at 0.94. Portable chest x-ray was obtained. There is no acute process noted. Because of the elevated d-dimer, CTA of the chest was obtained. There is no evidence of pulmonary embolism. These were interpreted by the radiologist and reviewed by myself. Emergency Department Course and Treatment: Patient was given aspirin. Patient was ordered nitroglycerin but states her pain has resolved. Patient was advised of her results. Patient was instructed to follow-up with her primary care physician in 5 to 7 days. Patient understood and was agreeable with the plan. All questions were answered. Disposition: Discharge home Impression: 1. Chest pain of uncertain etiology This note was generated with [employer] software. It may contain incorrect words, spelling, and punctuation that were not noted in review of the chart prior to signing ED Disposition - Plan for ED Patient: Disposition: Home or Assisted Living Diagnosis: Chest pain of uncertain etiology Instructions: ED Chest Pain Atypical Unkn Cause Referrals: Aracely Barahona MD [Primary Care Provider] - 5-7 Days
[2020-03-07 23:00] VITALS: BP 133/79; PULSE 65; RESP 16; O2SAT 95
[2020-03-07 23:19] VITALS: RESP 15
== END 2020-03-07 23:19 | disposition home or self-care (01) ==
PROVIDERS: Emergency Provider Emergency Medicine; PCP Internal Medicine
DX: R07.9 Chest pain, unspecified (principal)
CPT/HCPCS: 71045; 71275; 80048; 84484; 85025; 85379; 93005; 99285; Q9967; A4216

== ENCOUNTER → 2020-11-04 10:08 | Outpatient (CLI) | payer BC, SELFPAY ==
[2020-11-04 09:14] VITALS: BMI 25.9
[2020-11-04 12:02] LABS: AST(SGOT) 17 U/L (15-37); Alanine Aminotransfer ALT/SGPT 33 U/L (13-56); Albumin, Serum 3.9 g/dL (3.2-5.0); Alkaline Phosphatase 63 U/L (45-117); Bilirubin, Direct 0.09 mg/dL (0.00-0.30); Cholesterol 184 mg/dL (200); Globulin 3.1 g/dL (2.2-4.2); High Density Lipoprotein 60 mg/dL; Triglycerides 184 mg/dL; Very Low Density Lipoprotein 37 mg/dL (5-40)
== END ==
PROVIDERS: PCP Internal Medicine; Referring Provider Internal Medicine Cardiovascular Disease; Visit Provider Internal Medicine Cardiovascular Disease
DX: R07.9 Chest pain, unspecified (principal)
CPT/HCPCS: 36415; 80061; 80076

== ENCOUNTER → 2020-11-10 09:21 | Outpatient (CLI) | payer BC, SELFPAY ==
[2020-11-04 09:14] VITALS: BMI 25.9
--- NOTE | 2020-11-10 09:24 | STE_ITS ---
Reason For Study: Chest Pain Stress Results Protocol: Gregg Protocol Maximum Predicted HR: 157 bpm Target HR: 133 bpm % Maximum Predicted HR: 90 % DurationHeart Rate Stage (mm:ss) (bpm) BP Comment Baseline 84 138/80No Chest Pain Gregg Protocol Stage I 3:00 112 124/78No Chest Pain Gregg Protocol Stage II 3:00 126 136/74No Chest Pain; Mild Dypsnea Gregg Protocol Stage III 3:00 141 150/68No Chest Pain; Mild Dyspnea Recovery 90 122/64No Chest Pain Stress Duration: 9:00 mm:ss Maximum Stress HR: 141 bpm METS: 10 Baseline Echocardiogram Findings Stress Echo Wall motion Data Resting WM Intermediate WM Stress WM Interpretation Summary 65-year-old lady with a history of hypertension and family history of coronary disease and chest pain. Stress protocol: Resting EKG demonstrates normal sinus rhythm with a rate of 81 bpm normal intervals are noted resting blood pressure is 1 and 38 over 80 mmHg. The patient exercised according to regular Gregg protocol for a total duration of 9 minutes patient completed stage III of the Gregg protocol. The maximum heart rate attained was 141 bpm which was 89% of maximum predicted heart rate the maximum workload was 10.4 metabolic equivalents. At rest there were no ST or T wave changes noted to suggest ischemia at peak exercise upsloping ST changes were noted we did not meet the criteria for ischemia. No clinical angina was noted. The test was terminated due to target heart rate being achieved. The peak blood pressure was 150/68 which was a good blood pressure response to exercise. Stress echocardiogram. Resting echocardiographic images demonstrated resting ejection fraction of approximately 60%. With exercise there was thickening of all roa and reduction in low ventricular cavity size with peaking of ejection fraction at approximately 70%. No wall motion abnormalities were noted. Conclusion: Exercise stress test with no EKG criteria for ischemia at a high workload. Normal stress and resting echocardiographic images. Good functional capacity Ordering Physician: Demetrius Renee Referring Physician: Aracely Barahona Performed By: Olivia Foote, LIYA, RVT
== END ==
PROVIDERS: PCP Internal Medicine; Referring Provider Internal Medicine Cardiovascular Disease; Visit Provider Internal Medicine Cardiovascular Disease
DX: R07.9 Chest pain, unspecified (principal)
CPT/HCPCS: 93017; 93225; 93226; 93350

== ENCOUNTER 2022-09-21 10:18 | Emergency (ER) | payer OTHER, SELFPAY ==
[2022-09-21 10:19] VITALS: BP 149/89; PULSE 76; RESP 15; TEMP 36.2; O2SAT 97; BMI 25.1
--- NOTE | 2022-09-21 10:44 | EX.ED.UPPERE ---
HPI History of Present Illness Chief Complaint: Laceration Narrative Narrative: 67-year-old female presenting laceration to the lateral half of her distal index finger. This does involve a small area of the nail as well. The wound initially was bleeding but bleeding is controlled. Patient states that she was cutting bread and this caused the injury. She states the type is very sharp. Patient [id number]. Tetanus immunization up-to-date. [facility] Medical History Anxiety DVT, lower extremity Elevated troponin (12/05/18) Essential (primary) hypertension GERD (gastroesophageal reflux disease) Hyperlipidemia Transient ischemic attack (TIA) Type 2 diabetes mellitus Home Medications hydrocodone-acetaminophen 5-325mg 5mg-325mg 1 tab PO BID 09/22/13 [History Last Taken 09/21/13] lisinopril 20 mg tablet 10 mg PO BID 09/22/13 [History Last Taken 09/22/13] simvastatin 20 mg tablet 20 mg PO QHS 09/22/13 [History Last Taken 09/21/13] triamterene 37.5 mg-hydrochlorothiazide 25 mg tablet 1 tab PO DAILY 09/22/13 [History Last Taken 09/22/13] atenolol 25 mg tablet 12.5 mg PO DAILY 11/04/20 [History Last Taken Unknown] cholecalciferol (vitamin D3) 1,250 mcg (50,000 unit) capsule 50,000 unit PO QWEEK 11/04/20 [History Last Taken Unknown] colesevelam 625 mg tablet 625 mg PO DAILY 11/04/20 [History Last Taken Unknown] escitalopram oxalate 20 mg tablet 20 mg PO DAILY 11/04/20 [History Last Taken Unknown] hyoscyamine sulfate 0.125 mg sublingual tablet 0.125 mg sublingual DAILY PRN 11/04/20 [History Last Taken Unknown] lansoprazole 30 mg capsule,delayed release 30 mg PO DAILY 11/04/20 [History Last Taken Unknown] metformin 1,000 mg tablet 1,000 mg PO BID 11/04/20 [History Last Taken Unknown] sitagliptin phosphate 50 mg tablet 50 mg PO DAILY 11/04/20 [History Last Taken Unknown] zolpidem 10 mg tablet 10 mg PO QHS PRN Sleep 11/04/20 [History Last Taken Unknown] Allergy/AdvReac Type Severity Reaction Status Date / Time codeine Allergy Unknown Verified 09/21/22 10:20 venlafaxine HCl Allergy Chest Verified 09/21/22 10:20 [From Effexor] tightness Family History Father Myocardial infarction, Onset Age: 49 Other Heart disease Surgical History H/O foot surgery History of left heart catheterization (12/05/18) Social History Smoking Status: Never smoker ROS ROS ED Constitutional Constitutional ED: Denies chills, fever(s) or sweats Eyes Eyes: Denies blurry vision or change in vision ENT ENT ED: Denies ear pain or sore throat Cardiovascular Cardiovascular: Denies chest pain, palpitations or racing heartbeat Respiratory/Chest Respiratory/Chest: Denies cough, dyspnea or sputum Gastrointestinal Gastrointestinal: Denies abdominal pain, constipation, diarrhea, nausea or vomiting Genitourinary Genitourinary ED: Denies dysuria, hematuria or urinary frequency Musculoskeletal Musculoskeletal: Denies arthralgias, myalgias or neck pain Integumentary Reports other Details: Superficial laceration left index finger ; Denies abscess Neurologic Neurologic: Denies headache(s), paresthesias or weakness Psychiatric Psychiatric: Denies anxiety, depression, suicidal ideation or suicidal thoughts Endocrine Endocrinology: Denies polydipsia or polyuria EXAM Physical Exam Const Vital Signs: 09/21/22 10:19 Temperature 97.2 F L Temperature Source Temporal Pulse Rate 76 Respiratory Rate 15 Blood Pressure 149/89 H Blood Pressure Mean 109 Pulse Ox 97 Oxygen Delivery Method Room Air Positive well nourished General Appearance ED: NAD HEENT Reports moist mucous membranes normocephalic and atraumatic Eyes PERRL and EOMs intact bilaterally Resp normal respiratory effort Cardio regular rate and regular rhythm Neuro oriented x3 and CN's II-XII intact bilaterally Sensorium / Orientation: alert Motor Exam: strength 5/5 throughout Psych mental status grossly normal Skin Skin Narrative: 1 cm laceration on the left index finger dorsal surface laterally extending through a small portion of the nailbed and nail. Laceration is well approximated. The lacerated piece of nail still attached. No active bleeding. Left hand neurovascular intact brisk cap refill all 5 fingers. MDM MDM MDM Narrative Medical decision making narrative: Patient with very small laceration at the distal aspect of her left index finger dorsally. The wound is well approximated. There is only small amount of the nailbed involved. There is no active bleeding, subungual hematoma. I feel that the small area of the nail will likely fall off on its own. The nailbed involved is very small area and is not actively bleeding. The skin surface is well outside of the nailbed is intact although there is a laceration to it. It is well approximated. Patient's wound will be cleaned and a dressing will be placed on this. Tetanus immunization is up-to-date. Patient counseled on wound care and return precautions. I do not believe she needs sutures at this time. Impression: 1. Superficial left index finger laceration Lab Data Attestation: I reviewed the patient's lab results. Discharge Plan Triage Chief Complaint: Laceration ED Provider: Jorge Urrutia Dx/Rx/DC Orders Prescriptions: No Action metformin 1,000 mg tablet 1,000 mg PO BID lansoprazole 30 mg capsule,delayed release(DR/EC) 30 mg PO DAILY cholecalciferol (vitamin D3) 1,250 mcg (50,000 unit) capsule 50,000 unit PO QWEEK Label Comments: TAKE 1 CAPSULE BY MOUTH ONE TIME A WEEK. hyoscyamine sulfate 0.125 mg tablet, sublingual 0.125 mg SUBLINGUAL DAILY PRN hydrocodone-acetaminophen 1 TABLET tablet 1 tab PO BID Rx Instructions: takes @ 1000 and 1700 lisinopril 20 MG tablet 10 mg PO BID simvastatin 20 MG tablet 20 mg PO QHS triamterene-hydrochlorothiazid 1 EACH tablet 1 tab PO DAILY escitalopram oxalate 20 mg tablet 20 mg PO DAILY atenolol 25 mg tablet 12.5 mg PO DAILY zolpidem 10 mg tablet 10 mg PO QHS PRN colesevelam 625 mg tablet 625 mg PO DAILY sitagliptin phosphate 50 mg tablet 50 mg PO DAILY Primary Care Provider: Aracely Barahona Referrals: Aracely Barahona MD [Primary Care Provider] -
== END 2022-09-21 11:08 | disposition home or self-care (01) ==
LOC: ED 10:57
PROVIDERS: Emergency Provider Student in an Organized Health Care Education/Training Program; PCP Internal Medicine; Visit Provider Student in an Organized Health Care Education/Training Program
DX: S61.211A Laceration without foreign body of left index finger without damage to nail, initial encounter (principal); Z86.718 Personal history of other venous thrombosis and embolism; Z86.73 Personal history of transient ischemic attack (TIA), and cerebral infarction without residual deficits; X58.XXXA Exposure to other specified factors, initial encounter
CPT/HCPCS: 99282

== ENCOUNTER 2022-11-15 02:00 | Emergency (ER) | payer OTHER, SELFPAY ==
[2022-11-15 02:01] VITALS: BP 130/117; PULSE 94; RESP 22; TEMP 36.8; O2SAT 99; BMI 26.4
[2022-11-15 02:27] LABS: Absolute Lymphocyte Count 0.55 X10^3/uL (0.83-4.51); Absolute Neutrophil Count 12.4 X10^3/uL (2.0-7.7); Basophil# 0.04 X10^3/uL; Basophil% 0.3 % (0-1); Eosinophil# 0.03 X10^3/uL; Eosinophils% 0.2 % (0-5); Hematocrit 35.3 % (37-47); Hemoglobin 11.4 g/dL (12.0-15.0); Lymphocyte # 0.55 X10^3/ul (0.83-4.51); Mean Corp Hgb Conc 32.3 g/dL (32-36); Mean Corpuscular Hgb 27.5 pg (27.0-32.0); Mean Corpuscular Volume 85.3 fL (81-99); Monocyte# 0.82 X10^3/uL; Monocyte% 5.9 % (0-10); NRBC Flagged by Analyzer 0 % (0-5); Neutrophil # 12.42 X10^3/uL (2.7-7.7); Neutrophil % 89.2 % (47-70); POSITIVE DIFFERENTIAL YES; Platelet Count 295 K/mm3 (150-450); RBC Distribution Width CV 14.4 % (11.6-14.6); RBC Distribution Width SD 44.4 fl (35.1-43.9); Red Blood Count 4.14 M/mm3 (4.2-5.4); White Blood Count 13.9 K/mm3 (4.4-11.0)
--- NOTE | 2022-11-15 02:27 | ED.VIS.GI ---
HPI HPI - GI History of Present Illness Chief Complaint: Abd Pain Informant: patient and spouse/S.O. Narrative Narrative: Presenting with significant other for worsening mid epigastric abdominal pain since 8 PM. Vomiting and diarrhea multiple times nonbloody. Denies recent antibiotics. Reports ate pork chops together yesterday he is not sick. Denies history of similar. History of diabetes hyperlipidemia and hypertension. [facility] Medical History Anxiety DVT, lower extremity Elevated troponin (12/05/18) Essential (primary) hypertension GERD (gastroesophageal reflux disease) Hyperlipidemia Transient ischemic attack (TIA) Type 2 diabetes mellitus Home Medications hydrocodone-acetaminophen 5-325mg 5mg-325mg 1 tab PO BID 09/22/13 [History Last Taken 09/21/13] lisinopril 20 mg tablet 10 mg PO BID 09/22/13 [History Last Taken 09/22/13] simvastatin 20 mg tablet 20 mg PO QHS 09/22/13 [History Last Taken 09/21/13] triamterene 37.5 mg-hydrochlorothiazide 25 mg tablet 1 tab PO DAILY 09/22/13 [History Last Taken 09/22/13] atenolol 25 mg tablet 12.5 mg PO DAILY 11/04/20 [History Last Taken Unknown] cholecalciferol (vitamin D3) 1,250 mcg (50,000 unit) capsule 50,000 unit PO QWEEK 11/04/20 [History Last Taken Unknown] colesevelam 625 mg tablet 625 mg PO DAILY 11/04/20 [History Last Taken Unknown] escitalopram oxalate 20 mg tablet 20 mg PO DAILY 11/04/20 [History Last Taken Unknown] hyoscyamine sulfate 0.125 mg sublingual tablet 0.125 mg sublingual DAILY PRN 11/04/20 [History Last Taken Unknown] lansoprazole 30 mg capsule,delayed release 30 mg PO DAILY 11/04/20 [History Last Taken Unknown] metformin 1,000 mg tablet 1,000 mg PO BID 11/04/20 [History Last Taken Unknown] sitagliptin phosphate 50 mg tablet 50 mg PO DAILY 11/04/20 [History Last Taken Unknown] zolpidem 10 mg tablet 10 mg PO QHS PRN Sleep 11/04/20 [History Last Taken Unknown] ondansetron 4 mg disintegrating tablet 4 mg PO Q8H PRN PRN Nausea #10 tabs 11/15/22 [Rx Last Taken Unknown] promethazine 25 mg tablet 25 mg PO Q6H PRN PRN Nausea #10 TABLETS 11/15/22 [Rx Last Taken Unknown] Allergy/AdvReac Type Severity Reaction Status Date / Time codeine Allergy Unknown Verified 11/15/22 03:06 venlafaxine HCl Allergy Chest Verified 11/15/22 03:06 [From Effexor] tightness Family History Father Myocardial infarction, Onset Age: 49 Other Heart disease Surgical History H/O foot surgery History of left heart catheterization (12/05/18) Social History Smoking Status: Never smoker ROS ROS ED Constitutional Constitutional ED: Denies chills, fever(s) or sweats Eyes Eyes: Denies change in vision ENT ENT ED: Denies dysphagia or sore throat Cardiovascular Cardiovascular: Denies chest pain, leg edema, palpitations or racing heartbeat Respiratory/Chest Respiratory/Chest: Denies cough, dyspnea or dyspnea on exertion Gastrointestinal Gastrointestinal: Reports abdominal pain, diarrhea, nausea and vomiting Genitourinary Genitourinary ED: Denies dysuria, hematuria or urinary frequency Musculoskeletal Musculoskeletal: Denies back pain, extremity pain or neck pain Integumentary Denies rash or wounds Neurologic Neurologic: Denies headache(s), paresthesias or weakness EXAM Physical Exam Const Vital Signs: 11/15/22 02:01 11/15/22 02:08 11/15/22 04:58 Temperature 98.2 F Temperature Source Temporal Pulse Rate 94 87 Respiratory Rate 22 H 19 H Respiratory Effort Normal Respiratory Pattern Normal Blood Pressure 130/117 H 161/85 H Blood Pressure Mean 121 110 Pulse Ox 99 95 Oxygen Delivery Method Room Air Room Air 11/15/22 06:25 Temperature Temperature Source Pulse Rate 92 Respiratory Rate 18 Respiratory Effort Respiratory Pattern Blood Pressure 141/87 H Blood Pressure Mean Pulse Ox 96 Oxygen Delivery Method Positive well nourished and well developed Constitutional Narrative: Patient appearing ill and vomiting during evaluation. General Appearance ED: well developed HEENT Reports moist mucous membranes normocephalic and atraumatic Eyes PERRL, EOMs intact bilaterally and conjunctivae normal General Eye ED: Yes normal appearance of both eyes Neck no lymphadenopathy and supple General: Negative for tenderness Chest Wall Chest: Negative for tenderness Resp normal respiratory effort and normal air movement Effort and Inspection: symmetric chest movement; Negative for respiratory distress Cardio regular rate, regular rhythm and no murmurs Peripheral Pulses: pulses 2+ throughout GI normal to inspection, nondistended, normoactive bowel sounds GI Narrative: Epigastric tenderness. Negative Rosado's or McBurney's. Palpation: Negative for guarding or rebound tenderness present Back/Spine no CVA tenderness and no thoracic nor lumbar tenderness Extremity normal to inspection General Extremety ED: Negative for edema or tenderness General Extremity: Negative for edema Neuro oriented x3 and no sensory deficits noted Sensorium / Orientation: awake and alert Skin no rashes or lesions noted and no wounds MDM MDM MDM Narrative Medical decision making narrative: Interventions / MDM: Differential diagnosis: Abdominal pain, vomiting and diarrhea. Pancreatitis, gastroenteritis, gastric perforation Diagnosis considered but do not suspect: N/A My EKG interpretation: N/A Imaging independently reviewed and interpreted by myself: CT abdomen pelvis without contrast: Gastroenteritis findings, no other acute findings. External documents reviewed: N/A Test considered but not ordered:N/A ED course: Patient vomiting during evaluation epigastric tenderness. Abdominal labs were checked given morphine Zofran and fluids. White count 13 normal lipase and enzymes. Creatinine is normal. His clinical duration. She had a return of symptoms reevaluation additional morphine was given along with Zofran. She is given IV fluids of [address] scan obtain gastroenteritis findings. She is monitored. Symptoms are improving. She is tolerating p.o. intake. Prescription for Zofran and Phenergan for home. Apparently sick family members from her children and grandchildren with similar symptoms less than 24 hours. Return precaution discussed with patient and significant other. All questions were answered. Re-evaluation: stable Disposition discussed with patient/family/significant other: Patient and significant other Case discussed with consulting clinician: N/A Lab Data Labs: Laboratory Results - last 24 hr 11/15/22 11/15/22 02:11 02:11 WBC 13.9 H RBC 4.14 L Hgb 11.4 L Hct 35.3 L MCV 85.3 MCH 27.5 MCHC 32.3 RDW Std Deviation 44.4 H RDW Coeff of Kayode 14.4 Plt Count 295 MPV 11.0 Immature Gran % (Auto) 0.400 Neut % (Auto) 89.2 H Lymph % (Auto) 4.0 L [place] % (Auto) 5.9 Eos % (Auto) 0.2 Baso % (Auto) 0.3 Absolute Neuts (auto) 12.4 H Absolute Lymphs (auto) 0.55 L Nucleated RBC % 0 Differential Comment SCANNED Sodium 140 Potassium 3.4 L Chloride 102 Carbon Dioxide 23.0 Anion Gap 15 BUN 30 H Creatinine 1.24 H Estim Creat Clear Calc 48.91 Est GFR (MDRD) Af Amer 56 L Est GFR (MDRD) Non-Af 46 L BUN/Creatinine Ratio 24.2 H Glucose 292 H Calcium 8.8 Total Bilirubin 0.90 Direct Bilirubin 0.24 AST 14 L ALT 27 Alkaline Phosphatase 61 Total Protein 6.9 Albumin 3.8 Globulin 3.1 Lipase 329 Radiography Diagnostic Testing: Clinical Impression(s) from Imaging Studies Abdomen/Pelvis CT 11/15/22 03:28 IMPRESSION: 1. Fluid within nondistended loops of small bowel and within stomach without bowel wall thickening or surrounding inflammation can be normal or can be seen with gastroenteritis in the right clinical setting. 2. No other acute or inflammatory disease or bowel obstruction. 3. Old granulomatous disease. Electronically Signed: Koko Medeiros MD at 4:41 EDT , Discharge Plan Triage Chief Complaint: Abd Pain ED Provider: Louis Brooks Dx/Rx/DC Orders Clinical Impression: Abdominal pain, Vomiting, Diarrhea, Dehydration Instructions: Abdominal Pain, ED Dehydration (Adult), ED Gastroenteritis, Viral (Adult) Prescriptions: New promethazine [promethazine] 25 mg tablet 25 mg PO Q6H PRN PRN (Reason: Nausea) Qty: 10 0RF ondansetron [ondansetron] 4 mg tablet,disintegrating 4 mg PO Q8H PRN PRN (Reason: Nausea) Qty: 10 0RF No Action metformin 1,000 mg tablet 1,000 mg PO BID lansoprazole 30 mg capsule,delayed release(DR/EC) 30 mg PO DAILY cholecalciferol (vitamin D3) 1,250 mcg (50,000 unit) capsule 50,000 unit PO QWEEK Label Comments: TAKE 1 CAPSULE BY MOUTH ONE TIME A WEEK. hyoscyamine sulfate 0.125 mg tablet, sublingual 0.125 mg SUBLINGUAL DAILY PRN hydrocodone-acetaminophen 1 TABLET tablet 1 tab PO BID Rx Instructions: takes @ 1000 and 1700 lisinopril 20 MG tablet 10 mg PO BID simvastatin 20 MG tablet 20 mg PO QHS triamterene-hydrochlorothiazid 1 EACH tablet 1 tab PO DAILY escitalopram oxalate 20 mg tablet 20 mg PO DAILY atenolol 25 mg tablet 12.5 mg PO DAILY zolpidem 10 mg tablet 10 mg PO QHS PRN colesevelam 625 mg tablet 625 mg PO DAILY sitagliptin phosphate 50 mg tablet 50 mg PO DAILY Primary Care Provider: Aracely Barahona Referrals: Aracely Barahona MD [Primary Care Provider] - 3-5 Days Activity Restrictions/Additional Instructions: Lab stable slight Leukocytosis, 13.9. No lipase. Normal LFTs. Normal kidney function. CT scan notes gastro enteritis findings. Continue oral fluids for hydration. Medication's as needed. Follow-up with your doctor. Return if any worsening symptoms. Disposition Disposition: Home, Self Care Discharge Date/Time: 11/15/22 06:25
[2022-11-15] MEDS: Famotidine 200 MG/20 ML MDV 20 MG in 0.9% Normal Saline (Pres. free 8 ML 300 MG IV (02:29)
[2022-11-15] MEDS: Ondansetron 4 MG/2 ML Vial IV ×2 (02:32→04:55)
[2022-11-15] MEDS: 0.9% Normal Saline 1,000 ML 1000 ML IV (02:32)
[2022-11-15] MEDS: Morphine 4 MG/ML Syringe IV ×2 (02:32→03:35)
[2022-11-15 02:43] LABS: AST(SGOT) 14 U/L (15-37); Alanine Aminotransfer ALT/SGPT 27 U/L (13-56); Albumin, Serum 3.8 g/dL (3.2-5.0); Alkaline Phosphatase 61 U/L (45-117); Anion Gap 15 (5-15); BUN 30 mg/dL (7-18); BUN/Creat Ratio 24.2 RATIO (10-20); Bilirubin, Direct 0.24 mg/dL (0.00-0.30); Calcium,Total 8.8 mg/dL (8.5-10.1); Chloride 102 mmol/L (98-107); Creatinine, Serum 1.24 mg/dL (0.55-1.02); EST Glomerular Filtration Rate 46 mL/min (>60); Est Glom Filt Rate - Afr Amer 56 mL/min (>60); Estimated Creatinine Clearance 48.91 ml/min; Globulin 3.1 g/dL (2.2-4.2); Glucose 292 mg/dL (74-106); Lipase 329 U/L (73-393); Potassium 3.4 mmol/L (3.5-5.1); Protein, Total 6.9 g/dL (6.4-8.2); Sodium Level 140 mmol/L (136-145)
[2022-11-15 02:53] LABS: Differential Indicated SCAN CRITERIA MET
[2022-11-15 03:23] LABS: Differential Comment SCANNED
--- NOTE | 2022-11-15 03:28 | CT_ITS ---
EXAM: CT ABDOMEN AND PELVIS WITHOUT INTRAVENOUS CONTRAST CLINICAL INDICATION: abd pain TECHNIQUE: Helically acquired images were obtained of the abdomen and pelvis without intravenous contrast. CTDIvol = ( 12.94 ) mGy, DLP = ( 682.73 ) mGycm This CT exam was performed using one or more of the following dose reduction techniques: automated exposure control, adjustment of the mA and/or kV according to patient size, and/or use of iterative reconstruction technique. This report was created using [employer] report generation technology. COMPARISON: None. FINDINGS: LOWER THORAX: Unremarkable. Lung bases are clear. No cardiomegaly. No significant pericardial effusion. ABDOMEN: LIVER: Unremarkable. Homogeneous. GALLBLADDER AND BILE DUCTS: Unremarkable. No calcified gallstones. No gallbladder distention or wall edema. No intra- or extrahepatic biliary ductal dilation. PANCREAS: Unremarkable. No focal cystic mass. SPLEEN: Unremarkable. Normal size without focal cystic or solid mass. ADRENALS: Unremarkable. No nodules. KIDNEYS AND URETERS: Scarring involving the posterior aspect of the left kidney. No hydronephrosis. STOMACH AND BOWEL: Fluid within nondistended loops of small bowel and within stomach without bowel wall thickening or surrounding inflammation can be normal or can be seen with gastroenteritis in the right clinical setting. No colitis, diverticulitis or bowel obstruction. PELVIS: APPENDIX: No appendicitis. BLADDER: Unremarkable. REPRODUCTIVE: Unremarkable as visualized. No mass. ABDOMEN and PELVIS: INTRAPERITONEAL SPACE: Unremarkable. No ascites or other fluid collection. No free air. BONES/JOINTS: Calcified granulomas of the spine. At least moderate degenerative disc disease at L4-5. No suspicious lytic or blastic abnormality. SOFT TISSUES: Unremarkable. No discrete abdominal or pelvic wall hernia. VASCULATURE: Unremarkable. Abdominal aorta is non-dilated. LYMPH NODES: Unremarkable. No enlarged lymph nodes. CT/Abdomen/Pelvis without Cont IMPRESSION: 1. Fluid within nondistended loops of small bowel and within stomach without bowel wall thickening or surrounding inflammation can be normal or can be seen with gastroenteritis in the right clinical setting. 2. No other acute or inflammatory disease or bowel obstruction. 3. Old granulomatous disease. Electronically Signed: Koko Medeiros MD at 4:41 EDT ,
[2022-11-15] MEDS: 0.9% Normal Saline 1,000 ML 999 ML IV (04:55)
[2022-11-15 04:58] VITALS: BP 161/85; PULSE 87; RESP 19; O2SAT 95
[2022-11-15 06:25] VITALS: BP 141/87; PULSE 92; RESP 18; O2SAT 96
== END 2022-11-15 06:25 | disposition home or self-care (01) ==
PROVIDERS: Emergency Provider Emergency Medicine; PCP Internal Medicine; Visit Provider Emergency Medicine
DX: R10.13 Epigastric pain (principal); R11.10 Vomiting, unspecified; R19.7 Diarrhea, unspecified; E86.0 Dehydration; Z86.718 Personal history of other venous thrombosis and embolism; Z86.73 Personal history of transient ischemic attack (TIA), and cerebral infarction without residual deficits
CPT/HCPCS: 74176; 80048; 80076; 83690; 85025; 96361; 96374; 96375; 96376; 99284; J7030; A4216; J2405; J3490

== ENCOUNTER 2022-11-17 15:52 | Emergency (ER) | payer OTHER, SELFPAY ==
[2022-11-17 15:53] VITALS: BP 158/100; PULSE 76; RESP 16; TEMP 35.9; O2SAT 96; BMI 25.9
--- NOTE | 2022-11-17 16:04 | EX.ED.UPPERE ---
HPI <LULI Marshall - Last Filed: 11/17/22 18:27> History of Present Illness Chief Complaint: Upper Extremity Injury Narrative Narrative: Patient states she was recently in the ER with a viral stomach bug and had an IV in her left elbow on 11/14. This morning she noticed some redness and pain in the elbow and bicep area. She was concerned maybe it could be a DVT. She has a history of remote DVT in her lower extremity from a foot fracture. She takes aspirin 81 mg, no blood thinners. PFS <LULI Marshall - Last Filed: 11/17/22 18:27> [facility] Medical History Anxiety DVT, lower extremity Elevated troponin (12/05/18) Essential (primary) hypertension GERD (gastroesophageal reflux disease) Hyperlipidemia Transient ischemic attack (TIA) Type 2 diabetes mellitus Home Medications hydrocodone-acetaminophen 5-325mg 5mg-325mg 1 tab PO BID 09/22/13 [History Last Taken 09/21/13] lisinopril 20 mg tablet 10 mg PO BID 09/22/13 [History Last Taken 09/22/13] simvastatin 20 mg tablet 20 mg PO QHS 09/22/13 [History Last Taken 09/21/13] triamterene 37.5 mg-hydrochlorothiazide 25 mg tablet 1 tab PO DAILY 09/22/13 [History Last Taken 09/22/13] atenolol 25 mg tablet 12.5 mg PO DAILY 11/04/20 [History Last Taken Unknown] cholecalciferol (vitamin D3) 1,250 mcg (50,000 unit) capsule 50,000 unit PO QWEEK 11/04/20 [History Last Taken Unknown] colesevelam 625 mg tablet 625 mg PO DAILY 11/04/20 [History Last Taken Unknown] escitalopram oxalate 20 mg tablet 20 mg PO DAILY 11/04/20 [History Last Taken Unknown] hyoscyamine sulfate 0.125 mg sublingual tablet 0.125 mg sublingual DAILY PRN 11/04/20 [History Last Taken Unknown] lansoprazole 30 mg capsule,delayed release 30 mg PO DAILY 11/04/20 [History Last Taken Unknown] metformin 1,000 mg tablet 1,000 mg PO BID 11/04/20 [History Last Taken Unknown] sitagliptin phosphate 50 mg tablet 50 mg PO DAILY 11/04/20 [History Last Taken Unknown] zolpidem 10 mg tablet 10 mg PO QHS PRN Sleep 11/04/20 [History Last Taken Unknown] ondansetron 4 mg disintegrating tablet 4 mg PO Q8H PRN PRN Nausea #10 tabs 11/15/22 [Rx Last Taken Unknown] promethazine 25 mg tablet 25 mg PO Q6H PRN PRN Nausea #10 TABLETS 11/15/22 [Rx Last Taken Unknown] Allergy/AdvReac Type Severity Reaction Status Date / Time codeine Allergy Unknown Verified 11/17/22 15:53 venlafaxine HCl Allergy Chest Verified 11/17/22 15:53 [From Effexor] tightness Family History Father Myocardial infarction, Onset Age: 49 Other Heart disease Surgical History H/O foot surgery History of left heart catheterization (12/05/18) Social History Smoking Status: Never smoker ROS <LULI Marshall - Last Filed: 11/17/22 18:27> ROS ED ROS Narrative Constitutional: Negative for fever, chills, malaise. CVS: Negative for chest pain. Respiratory: Negative for shortness of breath. Neuro: Negative for motor/sensory dysfunction. Skin: Positive for redness. Musc: Negative for swelling, trauma. Heme: Negative for easy bruising, bleeding, lymphadenopathy. EXAM <LULI Marshall - Last Filed: 11/17/22 18:27> Physical Exam Narrative Exam Narrative: CONST: Patient sitting in no acute distress. EYES: Normal inspection. NECK: Normal inspection. RESP: No respiratory distress, CTAB. CVS: Regular rate and rhythm, no murmur, no gallop. SKIN: Slight erythema of the left antecubital fossa extending up the bicep, also a contact dermatitis over the antecubital fossa in the shape of a Band-Aid. EXTREMITIES: Left upper extremity: Normal appearance, slight redness and tenderness of the left antecubital fossa extending up to the mid bicep area, no fluctuance or crepitus, no edema, full range of motion. 2+ radial pulse, brisk cap refill. NEURO: Oriented x4. PSYCH: Normal affect. Const Vital Signs: 11/17/22 15:53 Temperature 96.7 F L Temperature Source Temporal Pulse Rate 76 Respiratory Rate 16 Blood Pressure 158/100 H Blood Pressure Mean 119 Pulse Ox 96 Oxygen Delivery Method Room Air [facility] <LULI Marshall - Last Filed: 11/17/22 18:27> [facility] Narrative Medical decision making narrative: History gathered from patient and spouse Patient had recent IV in her left antecubital fossa and now has redness and discomfort. It appears consistent with phlebitis. No edema of the extremity noted, full range of motion, neurovascularly intact. I advised warm compresses and [id number] analgesia. Patient was very concerned this could be a DVT but ultrasound is unavailable today so I provided an order to have this done on Saturday. She was discharged in stable condition. Differential: Phlebitis, DVT, cellulitis <Lamont Goodwin MD - Last Filed: 11/17/22 20:49> [facility] Narrative Medical decision making narrative: History gathered from patient and spouse Patient had recent IV in her left antecubital fossa and now has redness and discomfort. It appears consistent with phlebitis. No edema of the extremity noted, full range of motion, neurovascularly intact. I advised warm compresses and [id number] analgesia. Patient was very concerned this could be a DVT but ultrasound is unavailable today so I provided an order to have this done on Saturday. She was discharged in stable condition. Differential: Phlebitis, DVT, cellulitis I have personally performed a face to face assessment of the patient and have reviewed the AIRAM Note. I performed a substantive portion of the visit including all aspects of the following. My mcbride findings include: History is IV and left antecubital fossa 3 days ago, now with pain, redness, and swelling in biceps area. Exam is afebrile. Vital signs noted. Small palpable cord with erythema consistent with superficial thrombophlebitis of left arm from IV placement. Neurovascularly intact distally with palpable radial pulse, full range of motion of fingers. Medical Decision Making I do feel that this is more superficial. Patient was reassured. She will apply warm compresses and take full dose aspirin. Outpatient ultrasound on Saturday for more reassurance. Follow-up primary care. Disposition is discharged in stable condition. Return instructions were reviewed. Other additions or changes: [None] Discharge Plan Triage Chief Complaint: Upper Extremity Injury ED Midlevel Provider: Swathi Lares ED Provider: Lamont Goodwin Dx/Rx/DC Orders Clinical Impression: Phlebitis of left arm Instructions: ED Thrombophlebitis, Superficial Prescriptions: No Action metformin 1,000 mg tablet 1,000 mg PO BID lansoprazole 30 mg capsule,delayed release(DR/EC) 30 mg PO DAILY cholecalciferol (vitamin D3) 1,250 mcg (50,000 unit) capsule 50,000 unit PO QWEEK Label Comments: TAKE 1 CAPSULE BY MOUTH ONE TIME A WEEK. hyoscyamine sulfate 0.125 mg tablet, sublingual 0.125 mg SUBLINGUAL DAILY PRN hydrocodone-acetaminophen 1 TABLET tablet 1 tab PO BID Rx Instructions: takes @ 1000 and 1700 lisinopril 20 MG tablet 10 mg PO BID simvastatin 20 MG tablet 20 mg PO QHS triamterene-hydrochlorothiazid 1 EACH tablet 1 tab PO DAILY escitalopram oxalate 20 mg tablet 20 mg PO DAILY atenolol 25 mg tablet 12.5 mg PO DAILY zolpidem 10 mg tablet 10 mg PO QHS PRN colesevelam 625 mg tablet 625 mg PO DAILY sitagliptin phosphate 50 mg tablet 50 mg PO DAILY promethazine [promethazine] 25 mg tablet 25 mg PO Q6H PRN PRN (Reason: Nausea) Qty: 10 0RF ondansetron [ondansetron] 4 mg tablet,disintegrating 4 mg PO Q8H PRN PRN (Reason: Nausea) Qty: 10 0RF Other Ambulatory Orders: Venous Duplex US, Unilateral (Stat) Facility: [facility] - Location: [facility] Ordered By: Swathi Lares Primary Care Provider: Aracely Barahona Referrals: Aracely Barahona MD [Primary Care Provider] - Activity Restrictions/Additional Instructions: I suspect this is just phlebitis which is irritation of the superficial veins. Treat with warm compresses, Tylenol or Motrin. You can increase your aspirin to 325 mg once daily if you want. Return on Saturday for an ultrasound of your arm which will check for a DVT. Disposition Disposition: Home, Self Care Discharge Date/Time: 11/17/22 16:27
== END 2022-11-17 16:27 | disposition home or self-care (01) ==
PROVIDERS: Emergency Provider Emergency Medicine; PCP Internal Medicine; Visit Provider Emergency Medicine
DX: I80.8 Phlebitis and thrombophlebitis of other sites (principal); Z86.718 Personal history of other venous thrombosis and embolism; Z86.73 Personal history of transient ischemic attack (TIA), and cerebral infarction without residual deficits
CPT/HCPCS: 99282

== ENCOUNTER → 2022-11-18 | Outpatient (CLI) | payer OTHER, SELFPAY ==
--- NOTE | 2022-11-18 09:54 | VDUE_ITS ---
Reason For Study: pain Left Proximal Left jugular vein is spontaneous, widely patent, phasic, with no intraluminal echogenicity noted. Left subclavian vein is spontaneous, widely patent, phasic, with no intraluminal echogenicity noted. Left Arm Left axillary vein is spontaneous, patent, phasic, competent, compressible and demonstrates augmentation. Left brachial vein is compressible. Cephalic V is dilated and noncompressible up to the mid bicep. Left basilic vein is compressible. Left Lower Arm Left radial vein is compressible. Left ulnar vein is compressible. Pt refused to go to the ED for treatment instructions. States she will call her PCP tomorrow. VL/Venous Duplex US, Unilateral Interpretation Summary There is no evidence of left upper extremity deep vein thrombosis. Superficial thrombophlebitis left upper extremity cephalic vein extending to the mid bicep area Ordering Physician: Swathi Lares Referring Physician: Aracely Barahona M.D. Performed By: Rickey Ruelas RVT ???
== END | disposition home or self-care (01) ==
LOC: VL 09:54
PROVIDERS: PCP Internal Medicine; Referring Provider Physician Assistant; Visit Provider Physician Assistant
DX: M79.602 Pain in left arm (principal)
CPT/HCPCS: 93971

== ENCOUNTER → 2023-06-14 | Outpatient (CLI) | payer OTHER, SELFPAY | END | disposition home or self-care (01) | LOC: PSN 12:19 | PROVIDERS: PCP Internal Medicine; Referring Provider Nurse Practitioner Gerontology; Visit Provider Nurse Practitioner Gerontology | DX: R00.2 Palpitations (principal) | CPT/HCPCS: 93225; 93226 ==

== ENCOUNTER → 2023-07-16 | Outpatient (CLI) | payer OTHER, SELFPAY | END | disposition home or self-care (01) | LOC: SL 20:24 | PROVIDERS: PCP Internal Medicine; Referring Provider Nurse Practitioner Gerontology; Visit Provider Nurse Practitioner Gerontology | DX: G47.10 Hypersomnia, unspecified (principal) | CPT/HCPCS: 95810 ==

== ENCOUNTER → 2023-07-31 | Outpatient (CLI) | payer OTHER, SELFPAY ==
--- NOTE | 2023-07-31 12:59 | ECHOD_ITS ---
Reason For Study: PALPITATIONS Procedure This was a 2D Doppler, Color Flow transthoracic echocardiogram. Exam performed in department. Left Ventricle Normal size and thickness. The left ventricular ejection fraction is 65 %. Normal diastology for age. Right Ventricle Normal right ventricle. A moderator band is seen in the right ventricle. Atria The left and right atria are normal. Mitral Valve Mild (1+) mitral valve insufficiency. Tricuspid Valve Trivial tricuspid valve insufficiency. Normal pulmonary artery pressure. Aortic Valve Trisinus/trileaflet aortic valve. Pulmonic Valve The pulmonic valve is not well visualized. Great Vessels Normal sized aortic root. Pericardium/Pleural Trace posterior pericardial effusion. MMode/2D Measurements & Calculations LVIDd: 4.8 cm IVSd: 0.98 cm Ao root diam: 3.0 cm LVIDs: 3.1 cm LVPWd: 1.0 cm RVDd: 3.4 cm FS: 35.0 % LAV(MOD-bp): 42.3 ml LVAd ap4: 31.3 cm2 SV(MOD-sp4): 63.7 ml LAV(MOD-bp) Indexed: 21.1 ml/m2 LVLd ap4: 7.5 cm LAV(MOD-sp2): 39.8 ml EDV(MOD-sp4): 105.5 ml LAV(MOD-sp4): 42.4 ml EDV(sp4-el): 110.4 ml LVAs ap4: 18.3 cm2 LVLs ap4: 6.7 cm ESV(MOD-sp4): 41.8 ml ESV(sp4-el): 42.6 ml EF(MOD-sp4): 60.3 % EF(sp4-el): 61.4 % SV(sp4-el): 67.8 ml LA A4 area: 16.7 cm2 LA dimension(2D): 4.1 cm RA A4 area: 12.8 cm2 Time Measurements MV dec time: 0.22 sec Doppler Measurements & Calculations MV E max roby: 63.8 cm/sec Lat Peak E' Roby: 7.4 cm/sec Med Peak E' Roby: 5.9 cm/sec MV A max roby: 68.0 cm/sec E/E' lat: 8.6 E/E' med: 10.8 MV E/A: 0.94 Ao V2 max: 109.4 cm/sec LV V1 max: 94.1 cm/sec PA V2 max: 81.8 cm/sec Ao max P.8 mmHg LV V1 max P.5 mmHg TR max roby: 225.3 cm/sec TR max P.3 mmHg ECHO/Echo Complete Interpretation Summary The left ventricular ejection fraction is 65 %. Mild (1+) mitral valve insufficiency. Trace posterior pericardial effusion Ordering Physician: Mini June Referring Physician: CHAVO WARREN Performed By: Romelia Shanks RDCS
== END | disposition home or self-care (01) ==
PROVIDERS: PCP Internal Medicine; Referring Provider Nurse Practitioner Gerontology; Visit Provider Nurse Practitioner Gerontology
DX: R00.2 Palpitations (principal)
CPT/HCPCS: 93306

== ENCOUNTER → 2024-06-29 08:45 | Outpatient (REF) | payer SELFPAY | LOC: CVS 08:45 | PROVIDERS: PCP Internal Medicine | DX: Z13.6 Encounter for screening for cardiovascular disorders (principal) ==

== ENCOUNTER → 2024-11-17 | Outpatient (CLI) | payer OTHER, SELFPAY ==
[2024-11-17 17:18] LABS: Anion Gap 14 (5-15); BUN 29 mg/dL (4-19); BUN/Creat Ratio 23.9 RATIO (10-20); Calcium,Total 9.3 mg/dL (7.6-11.0); Carbon Dioxide 25.1 mmol/L (21.0-32.0); Chloride 99 mmol/L (98-108); Creatinine, Serum 1.22 mg/dL (0.70-1.20); EST Glomerular Filtration Rate 49 (>60); Glucose 111 mg/dL (70-99); Magnesium 1.1 mg/dL (1.5-2.2); Potassium 3.2 mmol/L (3.3-5.1); Sodium Level 139 mmol/L (133-145)
== END | disposition home or self-care (01) ==
LOC: LAB 16:09
PROVIDERS: PCP Internal Medicine; Referring Provider Physician Assistant Medical; Visit Provider Physician Assistant Medical
DX: E83.42 Hypomagnesemia (principal)
CPT/HCPCS: 36415; 80048; 83735

== ENCOUNTER → 2024-11-24 | Outpatient (CLI) | payer OTHER, SELFPAY ==
[2024-11-24 20:05] LABS: Anion Gap 11 (5-15); BUN 20 mg/dL (4-19); BUN/Creat Ratio 20.9 RATIO (10-20); Calcium,Total 8.4 mg/dL (7.6-11.0); Carbon Dioxide 25.9 mmol/L (21.0-32.0); Chloride 104 mmol/L (98-108); Creatinine, Serum 0.94 mg/dL (0.70-1.20); EST Glomerular Filtration Rate 66 (>60); Glucose 154 mg/dL (70-99); Magnesium 1.1 mg/dL (1.5-2.2); Potassium 3.6 mmol/L (3.3-5.1); Sodium Level 140 mmol/L (133-145)
== END | disposition home or self-care (01) ==
LOC: LAB 15:51
PROVIDERS: PCP Internal Medicine; Referring Provider Physician Assistant Medical; Visit Provider Physician Assistant Medical
DX: I10 Essential (primary) hypertension (principal); E83.42 Hypomagnesemia
CPT/HCPCS: 36415; 80048; 83735

== ENCOUNTER → 2024-12-02 | Outpatient (CLI) | payer OTHER, SELFPAY ==
[2024-12-02 15:04] LABS: Anion Gap 13 (5-15); BUN 21 mg/dL (4-19); BUN/Creat Ratio 19.8 RATIO (10-20); Calcium,Total 9.3 mg/dL (7.6-11.0); Carbon Dioxide 22.8 mmol/L (21.0-32.0); Chloride 104 mmol/L (98-108); Creatinine, Serum 1.06 mg/dL (0.70-1.20); EST Glomerular Filtration Rate 58 (>60); Glucose 130 mg/dL (70-99); Potassium 4.3 mmol/L (3.3-5.1); Sodium Level 139 mmol/L (133-145)
== END | disposition home or self-care (01) ==
LOC: LAB 14:07
PROVIDERS: PCP Internal Medicine; Referring Provider Physician Assistant Medical; Visit Provider Physician Assistant Medical
DX: Z51.81 Encounter for therapeutic drug level monitoring (principal); Z79.899 Other long term (current) drug therapy
CPT/HCPCS: 36415; 80048

== ENCOUNTER → 2024-12-09 | Outpatient (CLI) | payer OTHER, SELFPAY ==
--- NOTE | 2024-12-09 07:48 | CT_ITS ---
PROCEDURE: LIMITED CHEST CT CARDIAC ONLY REASON FOR EXAM: STRONG FAMILY HX TECHNIQUE: Prone and supine chest CT without contrast. One or more dose reduction techniques were used (e.g., Automated exposure control, adjustment of the mA and/or kV according to patient size, use of iterative reconstruction technique). COMPARISON: None FINDINGS: Hardware: None Lymph nodes: Calcification of the right hilar lymph nodes. Heart and Vasculature: Normal heart size. Pericardial thickening along the posterior aspect of the pericardium. Atherosclerotic calcifications of the thoracic aorta. Thoracic aorta and pulmonary arteries have normal contours; noncontrast technique limits evaluation. Coronary Artery Calcifications: Present Lungs and Airways: Unremarkable2 Pleura: Unremarkable Upper Abdomen: Unremarkable Bones: Degenerative changes of the thoracic spine. CT/Limited Chest CT Cardiac Only IMPRESSION: Coronary artery calcification (CAC) is is present Reading Location: [place] [id number]
--- NOTE | 2024-12-09 14:51 | CA.SCORE ---
Calcium Scoring Date of Study:: 12/09/24 Indications Indications: FH Coronary Calcium Scoring: High-resolution Computed Tomographic imaging of the chest was performed on [12/09/24 ], with particular attention paid to the coronary arteries. Images from the examination were analyzed for the presence and extent of coronary artery calcification , using coronary calcium quantification software. The patient tolerated the procedure well and there were no complications. The results of the coronary calcification analysis are provided below. Findings Coronary Artery Left Main (LM): 0 Left Anterior Descending (LAD): 115 Left Circumflex (LCX): 0 Right Coronary Artery (RCA): 0 Total Agatston Score: 115 Percentile Rankin-75th% Calcium Scoring Interpretation: Different methods to categorize the overall amount of coronary plaque. Overall amount CAC SIS Visual of coronary plaque P1 Mild -100 <2 1-2 vessels with mild amount of plaque P2 Moderate 101-300 3-4 1-2 vessels with moderate amount, 3 vessels with mild amount of plaque P3 Severe 301-999 5-7 3 vessels with moderate amount, 1 vessel with severe amount of plaque P4 Extensive >1000 >8 2-3 vessels with severe amount of plaque Calcium Score: Mild: 1-2 vessels w/mild amount of plaque Conclusion: Mild atherosclerotic plaque
== END | disposition home or self-care (01) ==
LOC: CT 07:45
PROVIDERS: PCP Internal Medicine; Referring Provider Physician Assistant Medical; Visit Provider Physician Assistant Medical
DX: R00.2 Palpitations (principal); Z82.49 Family history of ischemic heart disease and other diseases of the circulatory system
CPT/HCPCS: 75571; 76380; 93225; 93226

== ENCOUNTER → 2025-02-19 | Outpatient (CLI) | payer OTHER, SELFPAY ==
[2025-02-19 16:32] LABS: Anion Gap 13 (5-15); BUN 27 mg/dL (4-19); BUN/Creat Ratio 18.9 RATIO (10-20); Calcium,Total 9.8 mg/dL (7.6-11.0); Carbon Dioxide 21.5 mmol/L (21.0-32.0); Chloride 107 mmol/L (98-108); Creatinine, Serum 1.42 mg/dL (0.70-1.20); EST Glomerular Filtration Rate 41 (>60); Glucose 120 mg/dL (70-99); Magnesium 1.5 mg/dL (1.5-2.2); Potassium 4.7 mmol/L (3.3-5.1); Sodium Level 141 mmol/L (133-145)
== END | disposition home or self-care (01) ==
LOC: LAB 14:28
PROVIDERS: PCP Internal Medicine; Referring Provider Nurse Practitioner Gerontology; Visit Provider Nurse Practitioner Gerontology
DX: I10 Essential (primary) hypertension (principal); E83.42 Hypomagnesemia
CPT/HCPCS: 36415; 80048; 83735